=== PATIENT | male | born 1955 | race Caucasian/White ===

== ENCOUNTER 2018-02-27 13:34 | Inpatient (IN) | payer MEDICAID ==
[~2018-02-27] VITALS: Ht 175.3 cm; Wt 84.5 kg
[2018-02-27 13:42] VITALS: BP 148/96
--- NOTE | 2018-02-27 13:46 | NUR ---
AMBULATES OT BED 9
--- NOTE | 2018-02-27 14:01 | NUR ---
PATIENT PRESENTS TO ED WITH THE CHIEF C/O HEADACHE . PT STATES HEADACHE STARTED THIS MORNING . DENIES N/V/D; SKIN IS PINK/WARM/DRY; AAOX4 WITH EVEN AND STEADY GAIT; HR EVEN AND REGULAR; PT DENIES ANY FEVER, CP, SOB, OR COUGH AT THIS TIME; PATIENT STATES PAIN OF 8/10 AT THIS TIME; VSS; PATIENT POSITIONED FOR COMFORT; HOB ELEVATED; BEDRAILS UP X2; BED DOWN. ER MD MADE AWARE OF PT STATUS.
--- NOTE | 2018-02-27 14:05 | NUR ---
Dr. Roberto evaluating patient at bedside.
[2018-02-27] MEDS ORDERED: ONDANSETRON 4 MG/2 ML VIAL IVP ONE (14:10)
[2018-02-27] MEDS ORDERED: MECLIZINE 25 MG TAB PO ONE (14:10)
--- NOTE | 2018-02-27 14:18 | NUR ---
PT DENIES DIZZINESS AT THS TIME. TAKEN TO CT BY MILLWRIGHT APPRENTICE VIA WHEELCHAIR.
--- NOTE | 2018-02-27 14:34 | NUR ---
RETURNED FROM CT ON STABLE CONDITION.
[2018-02-27] MEDS: NACL 0.9% 1,000 ML IV SCH ×3 (14:46→17:28)
--- NOTE | 2018-02-27 14:51 | NUR ---
ADMINISTERED MEDICATION. TOLERATING WELL. FAMILY AT BEDSIDE.
[2018-02-27] MEDS ORDERED: PIPERACILLIN/TAZOBACTAM 3.375 GM in DEXT 5% MINI-BAG PLUS 50 ML IV ONE (15:00)
[2018-02-27] MEDS ORDERED: NACL 0.9% 1,000 ML IV SCH (15:00)
--- NOTE | 2018-02-27 15:02 | NUR ---
BP 167/87. DR. PARADA MADE AWARE.
[2018-02-27] MEDS ORDERED: PIPERACILLIN/TAZOBACTAM 3.375 GM VIAL IV ONE (15:10)
--- NOTE | 2018-02-27 15:15 | NUR ---
BLOOD DRAWN BY LAB.
[2018-02-27 15:32] LABS: BASOPHILS # (AUTO) 0.1 K/uL (0.00-0.22); BASOPHILS % (AUTO) 1.2 % (0.0-2.0); EOSINOPHILS # (AUTO) 0.2 K/uL (0-0.4); EOSINOPHILS % (AUTO) 2.9 % (0.0-4.0); HEMATOCRIT 37.1 % (36-52); HEMOGLOBIN 12.7 g/dL (12.0-18.0); LYMPHOCYTES # (AUTO) 1.3 K/uL (2.0-11.5); LYMPHOCYTES % (AUTO) 16.9 % (20.5-51.1); MEAN CORPUSCULAR HEMOGLOBIN 31 pg (27-31); MEAN CORPUSCULAR HGB CONC 34 g/dL (33-37); MEAN CORPUSCULAR VOLUME 90.9 fL (80-94); MONOCYTES # (AUTO) 0.3 K/uL (0.8-1.0); MONOCYTES % (AUTO) 3.3 % (1.7-9.3); NEUTROPHILS # (AUTO) 5.9 K/uL (1.8-7.7); NEUTROPHILS % (AUTO) 75.7 % (42.2-75.2); PLATELET COUNT (AUTO) 185 K/uL (140-450); RED BLOOD CELL COUNT(AUTO) 4.08 MIL/uL (4.20-6.10); RED CELL DISTRIBUTION WIDTH 13.3 % (11.6-13.7); WHITE BLOOD COUNT (AUTO) 7.8 K/uL (4.8-10.8)
[2018-02-27 15:49] LABS: PROTHROMBIN TIME 9.7 secs (10.8-13.4)
[2018-02-27] MEDS ORDERED: BLOOD PRESSURE (15:49)
[2018-02-27] MEDS ORDERED: METF500T PO (15:49)
[2018-02-27 15:53] LABS: ALBUMIN 2.9 g/dL (3.4-5.0); AMYLASE 52 U/L (25-115); ANION GAP 11.1 (8-16); ASPARTATE AMINOTRANSFERASE 24 U/L (15-37); CARBON DIOXIDE 27.8 mmol/L (21-32); CHLORIDE 100 mmol/L (98-107); CREATININE 1.9 mg/dL (0.7-1.3); GFR ARICAN-AMERICAN 47 mL/min (>90); GLUCOSE 300 mg/dL (74-106); LIPASE 241 U/L (73-393); MAGNESIUM 1.5 mg/dL (1.8-2.4); POTASSIUM 3.9 mmol/L (3.5-5.1); SODIUM SERUM 135 mmol/L (136-145); TOTAL BILIRUBIN 0.5 mg/dL (0.0-1.0); UREA NITROGEN, BLOOD 25 mg/dL (7-18)
[2018-02-27 16:02] LABS: ACETONE, SERUM NEGATIVE (NEGATIVE)
--- NOTE | 2018-02-27 16:20 | NUR ---
PT APPEARS TO BE RELAXED. RESTING IN BED QUIETLY. NO ACUTE RESP DISTRESS NOTED. NO CHANGE IN LOC. WILL CONTINUE TO MONITOR.
[2018-02-27] MEDS ORDERED: INSULIN REGULAR, HUMAN 100 UNIT/ML VIAL SUBQ ONE (17:10)
[2018-02-27] MEDS ORDERED: ONDANSETRON 4 MG/2 ML VIAL IM/IVP PRN (17:30)
[2018-02-27] MEDS ORDERED: HYDROcodone/APAP 7.5/325 MG 1 TAB PO PRN (17:30)
[2018-02-27] MEDS ORDERED: ACETAMINOPHEN 325 MG TAB PO PRN (17:30)
[2018-02-27] MEDS ORDERED: DOCUSATE SODIUM 100 MG GELCAP PO PRN (17:30)
[2018-02-27] MEDS ORDERED: MECLIZINE 25 MG TAB PO PRN (17:35)
--- NOTE | 2018-02-27 17:45 | NUR ---
UNABLE TO COLLECT URINE. PT DIDNOT VOID.
--- NOTE | 2018-02-27 18:05 | NUR ---
PT TRANSFERRED TO [facility] VIA [facility]. PT ON STBLE CONDITION. REPORT GIVEN TO INEZ. HANDED BELONGINGS TO THE PT.
[2018-02-27 18:12] LABS: CHOL/HDL RATIO 5.6 (1-4.5); FREE T4 (FREE THYROXINE) 1.05 ng/dL (0.76-1.46); PHOSPHORUS 3.5 mg/dL (2.5-4.9); THYROID STIMULATING HORMONE 0.82 uIU/mL (0.34-3.74)
--- NOTE | 2018-02-27 18:20 | NUR ---
PT ADMITTED TO TELE. PT AMBULATED TO BED FROM [facility] WITH STEADY GAIT. BEDSIDE REPORT GIVEN BY ER NURSE WARREN. PT'S FAMILY AT BEDSIDE. PT IS AAOX4. INTRODUCED SELF. PT ABLE TO STATE NAME AND BIRTHDAY. KNOWS HE IS AT [facility] AND WHAT BROUGHT HIM HERE. DENIES PAIN. LUNG SOUNDS CLEAR. O2 SAT 97% ON RA. HR 75, BP 143/63, TEMP 98.6, RR 18. IV TO R WRIST 20G INTACT. NS @100ML/HR. PT STATED LBM WAS TODAY. NO NAUSEA OR VOMITING. ORIENTED PT AND FAMILY TO USE OF CALL LIGHT AND ROOM PHONE. EDUCATED PT ON IV PUMP AND IF NEED TO AMBULATE TO BATHROOM TO PRESS CALL LIGHT. VERBALIZED UNDERSTANDING. TELE MONITOR. APPLIED, ID BAND ON, MRSA SWAB DONE. WILL CONTINUE TO MONITOR.
--- NOTE | 2018-02-27 18:30 | NUR ---
CALLED DR. TRACEY AND REPORTED PT'S MAG 1.5 AND ASKED IF PT CAN HAVE SOMETHING TO EAT. WILL WAIT FOR ORDERS.
[2018-02-27] MEDS ORDERED: DEXTROSE 50% 50 ML SYR IVP PRN ×2 (19:30)
--- NOTE | 2018-02-27 19:30 | NUR ---
ENDORSED PT TO SYNCHRONOUS MOTOR ASSEMBLER NURSE LORNE AT BEDSIDE FOR CONTINUITY OF CARE. PT IN STABLE CONDITION.
--- NOTE | 2018-02-27 19:35 | NUR ---
RECEIVED REPORT FROM DAY SHIFT RN, PATIENT RESTING IN BED, AWAKE ALERT ORIENTED X4, NO S/S OF DISTRESS NOTED, FAMILY MEMBERS AT THE BEDSIDE. IV PATENT AND INTACT, INFUSING NS AT 100ML/HR. PLAN OF CARE DISCUSSED, PATIENT VERBALIZED UNDERSTANDING, CALL LIGHT WITHIN REACH, SAFETY MEASURE ENSURED, WILL CONTINUE TO MONITOR.
[2018-02-27 20:00] VITALS: BP 143/59
[2018-02-27] MEDS: BLOOD GLUCOSE MONITORING 1 DEV DEV FS SCH (20:10)
--- NOTE | 2018-02-27 20:15 | NUR ---
PATIENT WAS EXAMINED BY DR. EASTMAN AT THE BEDSIDE
[2018-02-27] MEDS: INSULIN LISPRO SLIDING SCALE 100 UNITS/ML VIAL SUBQ PRN (20:55)
[2018-02-27 21:23] LABS: APPEARANCE,URINE CLEAR (CLEAR); BILIRUBIN,URINE NEGATIVE (NEGATIVE); BLOOD, URINE TRACE-L (NEGATIVE); LEUKOCYTE ESTERASE ,URINE NEGATIVE (NEGATIVE); NITRITE, URINE NEGATIVE (NEGATIVE); PH,URINE 5.5 (5.0-9.0); UGLUCOSE 3+ (NEGATIVE)
[2018-02-27 21:25] LABS: COLOR,URINE STRAW (YELLOW)
[2018-02-27] MEDS ORDERED: MAGNESIUM OXIDE 400 MG TAB PO SCH (21:30)
[2018-02-27 21:36] LABS: BARBITURATE, URINE NEG. ng/ml (NEG <=200); BENZODIAZEPINE, URINE NEG. ng/mL (NEG <=200); CANNABINOID, URINE NEG. ng/mL (NEG <=50); COCAINE, URINE NEG. ng/mL (NEG <=300); OPIATE, URINE NEG. ng/mL (NEG <=2000); PHENCYCLIDINE SCREEN,URINE NEG. ng/mL (NEG <=25)
--- NOTE | 2018-02-27 21:45 | NUR ---
RESPITE WORKER AT THE BEDSIDE, PATIENT RESTING IN BED, NO S/S OF DISTRESS NOTED.
[2018-02-27 21:49] LABS: RBC,URINE NONE SEEN /HPF (0-5); WBC,URINE NONE SEEN /HPF (0-5)
[2018-02-27] MEDS ORDERED: metFORMIN 500 MG TAB PO SCH (22:00)
[2018-02-27] MEDS ORDERED: cefTRIAXone 1,000 MG VIAL ONE (22:07)
--- NOTE | 2018-02-27 22:10 | NUR ---
DUE MEDICATION ADMINISTERED, PATIENT TOLERATED WELL. NO S/S OF DISTRESS NOTED, CALL LIGHT WITHIN REACH, SAFETY MEASURE ENSURED, WILL CONTINUE TO MONITOR.
[2018-02-28] VITALS: BP 128/69
--- NOTE | 2018-02-28 00:12 | NUR ---
VITAL SIGNS STABLE, RESPIRATION EVEN AND UNLABORED. CALL LIGHT WITHIN REACH, SAFETY MEASURE ENSURED, WILL CONTINUE TO MONITOR.
--- NOTE | 2018-02-28 02:46 | NUR ---
PATIENT IS SLEEPING, RESPIRATION EVEN AND UNLABORED, CALL LIGHT WITHIN REACH, SAFETY MEASURE ENSURED, WILL CONTINUE TO MONITOR.
[2018-02-28] MEDS: NACL 0.9% 1,000 ML IV SCH (03:44)
[2018-02-28 04:00] VITALS: BP 132/66
--- NOTE | 2018-02-28 04:15 | NUR ---
PATIENT WAS SLEEPING, EASY TO AROUSE, VITAL SIGNS STABLE, RESPIRATION EVEN AND UNLABORED, CALL LIGHT WITHIN REACH, SAFETY MEASURE ENSURED, WILL CONTINUE TO MONITOR.
[2018-02-28] MEDS: BLOOD GLUCOSE MONITORING 1 DEV DEV FS SCH (05:50)
[2018-02-28] MEDS: INSULIN LISPRO SLIDING SCALE 100 UNITS/ML VIAL SUBQ PRN (05:50)
[2018-02-28 06:22] LABS: BASOPHILS # (AUTO) 0.1 K/uL (0.00-0.22); BASOPHILS % (AUTO) 1.3 % (0.0-2.0); EOSINOPHILS # (AUTO) 0.4 K/uL (0-0.4); EOSINOPHILS % (AUTO) 5.8 % (0.0-4.0); HEMATOCRIT 33.6 % (36-52); HEMOGLOBIN 11.8 g/dL (12.0-18.0); LYMPHOCYTES # (AUTO) 1.8 K/uL (2.0-11.5); LYMPHOCYTES % (AUTO) 28.9 % (20.5-51.1); MEAN CORPUSCULAR HEMOGLOBIN 32 pg (27-31); MEAN CORPUSCULAR HGB CONC 35 g/dL (33-37); MEAN CORPUSCULAR VOLUME 91.5 fL (80-94); MONOCYTES # (AUTO) 0.4 K/uL (0.8-1.0); MONOCYTES % (AUTO) 5.6 % (1.7-9.3); NEUTROPHILS # (AUTO) 3.6 K/uL (1.8-7.7); NEUTROPHILS % (AUTO) 58.4 % (42.2-75.2); PLATELET COUNT (AUTO) 181 K/uL (140-450); RED BLOOD CELL COUNT(AUTO) 3.68 MIL/uL (4.20-6.10); RED CELL DISTRIBUTION WIDTH 13.2 % (11.6-13.7); WHITE BLOOD COUNT (AUTO) 6.2 K/uL (4.8-10.8)
[2018-02-28 07:03] LABS: ANION GAP 9.8 (8-16); CARBON DIOXIDE 28.1 mmol/L (21-32); CREATININE 1.6 mg/dL (0.7-1.3); POTASSIUM 3.9 mmol/L (3.5-5.1)
--- NOTE | 2018-02-28 07:17 | NUR ---
ENDORSED PLAN OF CARE TO DAY SHIFT RN, PATIENT RESTING IN BED, IN STABLE CONDITION.
--- NOTE | 2018-02-28 07:18 | NUR ---
RECEIVED REPORT FROM PM NURSE AT BEDSIDE. PT LYING DOWN ON HIS BED. INTRODUCED SELF AND UPDATED BOARD. IV ACCESS ON RT FA 22 G. DENIES ANY PAIN. WILL CONTINUE TO MONITOR PT.
[2018-02-28] MEDS ORDERED: CLINICAL MONITORING MC PRN (07:30)
[2018-02-28 07:40] LABS: MAGNESIUM 1.5 mg/dL (1.8-2.4); PHOSPHORUS 3.4 mg/dL (2.5-4.9)
[2018-02-28 08:00] VITALS: BP 152/70
[2018-02-28] MEDS ORDERED: metFORMIN 500 MG TAB PO SCH (08:00)
[2018-02-28] MEDS ORDERED: LISI-424 PO (08:39)
[2018-02-28] MEDS ORDERED: ASPI-1173 PO (08:39)
[2018-02-28] MEDS ORDERED: ATOR20TA40 PO (08:39)
[2018-02-28] MEDS ORDERED: GLIP5TAB13 PO (08:51)
[2018-02-28] MEDS ORDERED: LISI10TA11 PO (08:51)
--- NOTE | 2018-02-28 08:52 | NUR ---
PT REFUSED METFORMIN. STATES IT DOES HIS STOMACH UPSET. DOCTOR AT THE BEDSIDE. WILL STOP THE METFORMIN. WILL CONTINUE TO MONITOR PT.
[2018-02-28] MEDS ORDERED: ATORVASTATIN 20 MG TAB PO SCH (09:00)
[2018-02-28] MEDS ORDERED: ECOTRIN 81 MG TABEC PO SCH (09:00)
[2018-02-28] MEDS ORDERED: LISINOPRIL 5 MG TAB PO SCH (09:00)
[2018-02-28] MEDS ORDERED: METOPROLOL SUCCINATE 50 MG TABER PO SCH (09:00)
--- NOTE | 2018-02-28 10:30 | NUR ---
CHECKED ON PT. FAMILY AT THE BEDSIDE. INFORMED HIM OF HIS DC ORDERS. WORKING ON IT. ASKED PT IF WANTED TO GET PNA VACCINE. PT WANTS TO GET THE PNA VACCINE. ASKED DR TO PUT ORDER FOR PNA VACCINE. WAITING FOR DOCTOR ORDER . WILL CONTINUE TO MONITOR PT.
[2018-02-28] MEDS ORDERED: PNEUMOCOCCAL VACCINE 23 MCG/0.5 ML VIAL IMVAC SCH (10:35)
--- NOTE | 2018-02-28 12:00 | NUR ---
PT DISCHARGED PER DOCTOR ORDER. PT IN STABLE CONDITION. FAMILY AT THE BEDSIDE. GAVE THE INSTRUCTION PROVIDED IN THE DC ORDER. GAVE PRESCRIPTION AND THE DC PACKET. PT VERBALIZED UNDERSTANDING. PT WENT HOME WITH ALL HIS BELONGINGS AND PT IN STABLE CONDITION.
== END 2018-02-28 11:40 | disposition home or self-care (01) | DRG 139 ==
LOC: MED 13:34 → MTU 17:28
PROVIDERS: ADMIT General Practice; ATTEND General Practice
DX: J18.9 Pneumonia, unspecified organism (principal); N17.0 Acute kidney failure with tubular necrosis; D68.59 Other primary thrombophilia; E11.51 Type 2 diabetes mellitus with diabetic peripheral angiopathy without gangrene; E11.22 Type 2 diabetes mellitus with diabetic chronic kidney disease; J90 Pleural effusion, not elsewhere classified; E44.0 Moderate protein-calorie malnutrition; E11.65 Type 2 diabetes mellitus with hyperglycemia; N18.3 Chronic kidney disease, stage 3 (moderate); E83.42 Hypomagnesemia; E86.0 Dehydration; E78.5 Hyperlipidemia, unspecified; Z90.49 Acquired absence of other specified parts of digestive tract; Z89.422 Acquired absence of other left toe(s); J98.11 Atelectasis; Z68.27 Body mass index [BMI] 27.0-27.9, adult; I12.9 Hypertensive chronic kidney disease with stage 1 through stage 4 chronic kidney disease, or unspecified chronic kidney disease
CPT/HCPCS: 36415; 70450; 71045; 80048; 80053; 80305; 81001; 82009; 82150; 82550; 82553; 82948; 83036; 83605; 83690; 83735; 83874; 83880; 84100; 84436; 84439; 84443; 84479; 84484; 85025; 85610; 85730; 87040; 87081; 87086; 90732; 93005; 93880; 93925; 93970; 96374; 99285; J0696; J1815; J2405; J2543; J7030; J7060; J8597; Q0092

== ENCOUNTER 2019-03-31 09:48 | Emergency (ER) | payer MEDICAID ==
[~2019-03-31] VITALS: Ht 175.3 cm; Wt 84.6 kg
[~2019-03-31 09:48] MED LIST: ASPI-1173 PO; ATOR20TA40 PO; GLIP5TAB13 PO; LISI10TA11 PO
[2019-03-31 09:51] VITALS: BP 190/94
--- NOTE | 2019-03-31 10:02 | NUR ---
PT AMBULATED TO ER BED 12 WITH STEADY GAIT. ACCOMPANIED BY GIRLFRIEND
--- NOTE | 2019-03-31 10:14 | NUR ---
DR SHELTON AT BEDSIDE FOR PT EVALUATION
--- NOTE | 2019-03-31 10:18 | NUR ---
PT C/O LT EAR PAIN AND DIFFICULTY HEARING OUT OF LT EAR X1 MONTH. PT SAW MD AND WAS PRESCRIBED PENICILLIN, COMPLETED 7 DAY PRESCRIPTION. CLEAR, STICKY DRAINAGE AFTER MEDICATION COURSE COMPLETED. NO NASAL CONGESTION OR FEVER. PT TOOK TYLENOL AT 2100 LAST NIGHT W/ NO PAIN RELIEF. PT C/O DIFFICULTY CHEWING & SWALLOWING. PT RESTING IN BED WITH FAMILY MEMBER AT BEDSIDE, CALM. PT HAS NOT TAKEN MEDICATION X1.5 DAYS. MEDHX: DM, HTN, HYPERLIPIDEMIA
[2019-03-31] MEDS ORDERED: NACL 0.9% 1,000 ML IV SCH (10:23)
[2019-03-31] MEDS ORDERED: MORPHINE SULFATE 4 MG/ML SYR IVP ONE (10:25)
[2019-03-31] MEDS ORDERED: CEFEPIME 2,000 MG in DEXTROSE 5% 100 ML IV ONE (10:50)
[2019-03-31] MEDS ORDERED: CEFEPIME 2,000 MG VIAL IV ONE (11:06)
--- NOTE | 2019-03-31 11:10 | NUR ---
PT RESTING IN BED WITH EYES CLOSED. STATES PAIN IS 4/10 AFTER MEDS
[2019-03-31 11:22] LABS: BASOPHILS # (AUTO) 0.1 K/uL (0.00-0.22); EOSINOPHILS # (AUTO) 0.3 K/uL (0-0.4); EOSINOPHILS % (AUTO) 4.5 % (0.0-4.0); HEMATOCRIT 39.5 % (36-52); HEMOGLOBIN 13.8 g/dL (12.0-18.0); LYMPHOCYTES # (AUTO) 1.4 K/uL (2.0-11.5); LYMPHOCYTES % (AUTO) 21.2 % (20.5-51.1); MEAN CORPUSCULAR HEMOGLOBIN 32 pg (27-31); MEAN CORPUSCULAR HGB CONC 35 g/dL (33-37); MEAN CORPUSCULAR VOLUME 90.4 fL (80-94); MONOCYTES # (AUTO) 0.3 K/uL (0.8-1.0); MONOCYTES % (AUTO) 4.4 % (1.7-9.3); NEUTROPHILS # (AUTO) 4.4 K/uL (1.8-7.7); NEUTROPHILS % (AUTO) 68.9 % (42.2-75.2); PLATELET COUNT (AUTO) 206 K/uL (140-450); RED BLOOD CELL COUNT(AUTO) 4.37 MIL/uL (4.20-6.10); RED CELL DISTRIBUTION WIDTH 12.9 % (11.6-13.7); WHITE BLOOD COUNT (AUTO) 6.4 K/uL (4.8-10.8)
[2019-03-31 11:52] LABS: ANION GAP 14.1 (8-16); CARBON DIOXIDE 25.5 mmol/L (21-32); CREATININE 1.8 mg/dL (0.7-1.3); POTASSIUM 3.6 mmol/L (3.5-5.1)
--- NOTE | 2019-03-31 12:03 | NUR ---
PT RESTING WITH EYES CLOSED. WAITING TO GO TO CT
--- NOTE | 2019-03-31 12:26 | NUR ---
[facility] at bedside to take patient over to [facility] for CT order.
--- NOTE | 2019-03-31 14:45 | NUR ---
PATIENT IS BACK FROM CT FROM [place] AND [place]ACED IN BED 12.
[2019-03-31] MEDS ORDERED: cloNIDine 0.1 MG TAB PO ONE (15:30)
--- NOTE | 2019-03-31 15:38 | NUR ---
PT RESTING IN BED WITH DAUGHTER AT BEDSIDE. C/O 03/08 EAR PAIN.
[2019-03-31] MEDS ORDERED: MORPHINE SULFATE 10 MG/ML VIAL IVP ONE (16:15)
--- NOTE | 2019-03-31 17:16 | NUR ---
[facility] at bedside for transport to [facility] ED.
--- NOTE | 2019-03-31 17:20 | NUR ---
report given to Nacho at [facility] ed. [facility] at bedside. report given to Norberto EMT. vss at transfer.
[2019-03-31 17:24] VITALS: BP 156/98
== END 2019-03-31 17:20 | disposition short-term general hospital (02) ==
LOC: MED 09:48
DX: H60.22 Malignant otitis externa, left ear (principal); E11.9 Type 2 diabetes mellitus without complications; I10 Essential (primary) hypertension; E78.00 Pure hypercholesterolemia, unspecified; Z79.82 Long term (current) use of aspirin; Z79.899 Other long term (current) drug therapy
CPT/HCPCS: 36415; 80048; 82948; 85025; 85651; 86140; 87040; 96365; 96375; 96376; 99285; J0692; J2270; J7030

== ENCOUNTER 2019-04-01 16:56 | Inpatient (IN) | payer MEDICAID ==
[~2019-04-01] VITALS: Ht 175.3 cm; Wt 82.1 kg
[2019-04-01 17:01] VITALS: BP 171/114
--- NOTE | 2019-04-01 17:15 | NUR ---
PT AMBULATED TO BED 08.
--- NOTE | 2019-04-01 17:30 | NUR ---
PT C/O VOMITING 7 EPISODES AT 2 AM TODAY AFTER BEING DISCHARGED FROM [facility] ER FOR LEFT EAR INFECTION. PATIENT STATES PAIN OF 0/10 AT THIS TIME; VSS; PATIENT POSITIONED FOR COMFORT; HOB ELEVATED; BEDRAILS UP X1; BED DOWN. ER MD MADE AWARE OF PT STATUS. IS AT BEDSIDE.
[2019-04-01] MEDS ORDERED: ONDANSETRON 4 MG/2 ML VIAL IVP ONE (17:55)
[2019-04-01] MEDS ORDERED: NACL 0.9% 1,000 ML IV ONE (17:55)
[2019-04-01] MEDS ORDERED: KETOROLAC 30 MG/ML VIAL IVP ONE (17:55)
[2019-04-01 18:18] LABS: BASOPHILS % (AUTO) 0.2 % (0.0-2.0); EOSINOPHILS % (AUTO) 0.2 % (0.0-4.0); HEMATOCRIT 38.6 % (36-52); HEMOGLOBIN 13.1 g/dL (12.0-18.0); LYMPHOCYTES % (AUTO) 9.8 % (20.5-51.1); MEAN CORPUSCULAR HEMOGLOBIN 31 pg (27-31); MEAN CORPUSCULAR HGB CONC 34 g/dL (33-37); MEAN CORPUSCULAR VOLUME 91.7 fL (80-94); MONOCYTES # (AUTO) 0.3 K/uL (0.8-1.0); MONOCYTES % (AUTO) 3.2 % (1.7-9.3); NEUTROPHILS # (AUTO) 8.5 K/uL (1.8-7.7); NEUTROPHILS % (AUTO) 86.6 % (42.2-75.2); PLATELET COUNT (AUTO) 232 K/uL (140-450); RED BLOOD CELL COUNT(AUTO) 4.21 MIL/uL (4.20-6.10); RED CELL DISTRIBUTION WIDTH 13.4 % (11.6-13.7); WHITE BLOOD COUNT (AUTO) 9.8 K/uL (4.8-10.8)
--- NOTE | 2019-04-01 18:30 | NUR ---
PT IS RESTING IN BED WITH EYES CLOSED. VSS.
[2019-04-01 18:35] LABS: ANION GAP 19.1 (8-16); CARBON DIOXIDE 24.1 mmol/L (21-32); CREATININE 2.5 mg/dL (0.7-1.3); POTASSIUM 4.2 mmol/L (3.5-5.1)
[2019-04-01 18:41] LABS: ALBUMIN 3.5 g/dL (3.4-5.0); TOTAL BILIRUBIN 0.7 mg/dL (0.0-1.0)
[2019-04-01] MEDS ORDERED: HYDROcodone/APAP 7.5/325 MG 1 TAB PO PRN (19:05)
[2019-04-01] MEDS ORDERED: DOCUSATE SODIUM 100 MG GELCAP PO PRN (19:05)
[2019-04-01] MEDS ORDERED: MORPHINE SULFATE 2 MG/ML SYR IVP PRN (19:05)
[2019-04-01] MEDS ORDERED: DEXT 5% / NACL 0.45% 1,000 ML IV ONE (19:05)
[2019-04-01] MEDS ORDERED: PANTOPRAZOLE 40 MG INJ VIAL IVP SCH (19:05)
[2019-04-01] MEDS ORDERED: DEXTROSE 50% 50 ML SYR IVP PRN (19:05)
--- NOTE | 2019-04-01 19:19 | NUR ---
Pt report given to DANIAL Eisenberg. Transfer of care at this time.
--- NOTE | 2019-04-01 19:30 | NUR ---
PT. IS SLEEPING AT THIS TIME. IS AT BEDSIDE.
[2019-04-01 20:50] VITALS: BP 180/100
--- NOTE | 2019-04-01 20:50 | NUR ---
Patient will be admitted to care of [facility] . Admited to Med/Surg. Will go to room 106 B. Belongings list completed. Report to DANIAL VIZCAINO.
--- NOTE | 2019-04-01 20:50 | NUR ---
RECEIVED PT FROM ER NURSE. PT CAME IN [facility] AND AMBULATED TO [facility] BED. AT BEDSIDE. NO S/S OF SOB NOTED IN ROOM AIR. SKIN INTACT, WARM AND DRY TO TOUCH. IV SITE ON RAC, 20G, PATENT, INTACT, AND ASYMPTOMATIC. BOARD UPDATED, MRSA SWAB DONE, VS CHECKED, 180/100 NOTED, WILL NOTIFY TO DX: DEHYDRATION, LEFT EAR MALIGNANT OTITIS EXTERNA. ORIENT ROOM TO PT. BED IN LOW POSITION, CALL LIGHT WITHIN REACH. WILL CONTINUE TO MONITOR.
[2019-04-01] MEDS: DEXT 5% / NACL 0.45% 1,000 ML IV SCH ×2 (20:55→21:25)
[2019-04-01 21:10] LABS: APPEARANCE,URINE HAZY (CLEAR); BILIRUBIN,URINE NEGATIVE (NEGATIVE); BLOOD, URINE 2+ (NEGATIVE); COLOR,URINE YELLOW (YELLOW); LEUKOCYTE ESTERASE ,URINE NEGATIVE (NEGATIVE); NITRITE, URINE NEGATIVE (NEGATIVE); UGLUCOSE 2+ (NEGATIVE)
[2019-04-01 21:22] LABS: BARBITURATE, URINE NEG. ng/ml (NEG <=200); BENZODIAZEPINE, URINE NEG. ng/mL (NEG <=200); CANNABINOID, URINE NEG. ng/mL (NEG <=50); COCAINE, URINE NEG. ng/mL (NEG <=300); OPIATE, URINE POS. ng/mL (NEG <=2000); PHENCYCLIDINE SCREEN,URINE NEG. ng/mL (NEG <=25)
[2019-04-01 21:27] LABS: PROTHROMBIN TIME 9.3 secs (10.8-13.4)
[2019-04-01] MEDS ORDERED: METOPROLOL 5 MG/5 ML VIAL IVP SCH (21:30)
--- NOTE | 2019-04-01 21:30 | NUR ---
BS CHECKED, 260. WILL ADMINISTER INSULIN. GIVEN PROTONIX, LOLEA ORDERED. PT TOLERATED WELL.
[2019-04-01 21:34] LABS: CHOL/HDL RATIO 5.4 (1-4.5); PHOSPHORUS 3.1 mg/dL (2.5-4.9); THYROID STIMULATING HORMONE 1.07 uIU/mL (0.34-3.74)
[2019-04-01 21:35] LABS: MAGNESIUM 1.4 mg/dL (1.8-2.4)
[2019-04-01] MEDS: BLOOD GLUCOSE MONITORING 1 DEV DEV FS SCH (21:37)
[2019-04-01] MEDS ORDERED: MAG SULF 2000 MG/WATER PREMIX 50 ML IV SCH (22:00)
[2019-04-01] MEDS: INSULIN LISPRO SLIDING SCALE 100 UNITS/ML VIAL SUBQ PRN (22:10)
--- NOTE | 2019-04-01 22:10 | NUR ---
GIVEN INSULIN SLIDING SCALE, GIVEN MAG MILLS MD ORDERED. PT TOLERATED WELL. WILL CONTINUE TO MONITOR.
--- NOTE | 2019-04-01 22:38 | NUR ---
REASSESS BP, 129/67, HR 75. WILL CONTINUE TO MONITOR.
[2019-04-02] VITALS (7 sets, daily range): BP systolic 118–181; BP diastolic 55–90
--- NOTE | 2019-04-02 02:22 | NUR ---
PT SLEEPING IN BED. NO ACUTE DISTRESS NOTED.
[2019-04-02] MEDS: metroNIDAZOLE 500 MG/NS PREMIX 100 ML IV SCH ×3 (04:11→20:43)
[2019-04-02] MEDS: hydrALAZINE 10 MG TAB PO PRN ×3 (04:11→14:01)
--- NOTE | 2019-04-02 04:11 | NUR ---
GIVEN FLAGYL MD ORDERED, VS CHECKED, PAIN 8/10 ON L EAR. GIVEN MORPHINE MD ORDERED, BP 175/89, GIVEN HYDRALAZINE MD ORDERED. PT TOLERATED WELL. WILL CONTINUE TO MONITOR.
[2019-04-02] MEDS: DEXT 5% / NACL 0.45% 1,000 ML IV SCH ×2 (05:31→14:01)
[2019-04-02] MEDS: BLOOD GLUCOSE MONITORING 1 DEV DEV FS SCH ×4 (05:31→20:39)
[2019-04-02] MEDS: INSULIN LISPRO SLIDING SCALE 100 UNITS/ML VIAL SUBQ PRN ×4 (05:40→20:40)
--- NOTE | 2019-04-02 06:30 | NUR ---
PT IN BED, AWAKE. BREATHING EVEN AND UNLABORED.
[2019-04-02 06:51] LABS: BASOPHILS # (AUTO) 0.1 K/uL (0.00-0.22); BASOPHILS % (AUTO) 0.7 % (0.0-2.0); EOSINOPHILS # (AUTO) 0.2 K/uL (0-0.4); EOSINOPHILS % (AUTO) 2.5 % (0.0-4.0); HEMATOCRIT 32.7 % (36-52); HEMOGLOBIN 11.2 g/dL (12.0-18.0); LYMPHOCYTES # (AUTO) 1.4 K/uL (2.0-11.5); LYMPHOCYTES % (AUTO) 18.6 % (20.5-51.1); MEAN CORPUSCULAR HEMOGLOBIN 32 pg (27-31); MEAN CORPUSCULAR HGB CONC 34 g/dL (33-37); MEAN CORPUSCULAR VOLUME 91.8 fL (80-94); MONOCYTES # (AUTO) 0.5 K/uL (0.8-1.0); MONOCYTES % (AUTO) 6.6 % (1.7-9.3); NEUTROPHILS # (AUTO) 5.4 K/uL (1.8-7.7); NEUTROPHILS % (AUTO) 71.6 % (42.2-75.2); PLATELET COUNT (AUTO) 192 K/uL (140-450); RED BLOOD CELL COUNT(AUTO) 3.56 MIL/uL (4.20-6.10); RED CELL DISTRIBUTION WIDTH 13.2 % (11.6-13.7); WHITE BLOOD COUNT (AUTO) 7.5 K/uL (4.8-10.8)
[2019-04-02] MEDS ORDERED: DEXTROSE 50% 50 ML SYR IVP PRN (07:20)
[2019-04-02] MEDS ORDERED: INSULIN LISPRO SLIDING SCALE 100 UNITS/ML VIAL SUBQ PRN (07:20)
--- NOTE | 2019-04-02 07:20 | NUR ---
RECEIVED PT FROM MESS ATTENDANT CREW NURSE, CHARIS, PT IS AWAKE AND LYING ON THE BED WITH SIDE RAILS UP AND CALL LIGHT WITHIN REACH, IV LINE ON THE RT AC G. 20 WITH D51/2 NS INFUSING AT 100ML/HR, HAS A LEFT TOES AMPUTATION. PT DENEIS PAIN AND NO SIGN OF DISTRESS NOTED. WILL MONITOR PT.
[2019-04-02] MEDS ORDERED: BLOOD GLUCOSE MONITORING 1 DEV DEV FS SCH (07:30)
[2019-04-02 08:10] LABS: MAGNESIUM 1.9 mg/dL (1.8-2.4); PHOSPHORUS 3.2 mg/dL (2.5-4.9)
[2019-04-02] MEDS: ATORVASTATIN 20 MG TAB PO SCH (08:10)
[2019-04-02] MEDS: ONDANSETRON 4 MG/2 ML VIAL IM/IVP PRN (08:11)
[2019-04-02] MEDS: ECOTRIN 81 MG TABEC PO SCH (08:15)
[2019-04-02] MEDS: PANTOPRAZOLE 40 MG INJ VIAL IVP SCH (08:15)
[2019-04-02] MEDS: LACTOBACILLUS RHAMNOSUS GG 1 EACH CAP PO SCH (08:15)
--- NOTE | 2019-04-02 08:15 | NUR ---
GAVE IV PUSH MEDICATIONS, AND ORAL MEDICATIONS, CHECK PARAMETERS, PATIENT TOLERATED, WILL MONITOR AND REASSESS BP
[2019-04-02 08:18] LABS: ANION GAP 12.8 (8-16); CARBON DIOXIDE 26.7 mmol/L (21-32); CREATININE 2.5 mg/dL (0.7-1.3); POTASSIUM 3.5 mmol/L (3.5-5.1)
--- NOTE | 2019-04-02 08:19 | NUR ---
PATIENT HAS BEEN SCREENED AND CATEGORIZED MODERATE NUTRITION RISK. PATIENT WILL BE SEEN WITHIN 3-5 DAYS OF ADMISSION. 04/05/19MELINA KAUR [address]
--- NOTE | 2019-04-02 09:00 | NUR ---
pt performed IS very well. predicted 1899, actual 2399. RN aware.
[2019-04-02] MEDS: ACETAMINOPHEN 325 MG TAB PO PRN (10:46)
--- NOTE | 2019-04-02 10:46 | NUR ---
PT C/O PAIN ON THE LEFT TEMPORAL AREA AND ASKED FOR TYLENOL, ORAL MEDICATION WAS GIVEN AND WILL MONITOR PT.
--- NOTE | 2019-04-02 11:36 | NUR ---
BLOOD GLUCOSE CHECK DONE AND RESULT IS 188, WILL MONITOR PT.
--- NOTE | 2019-04-02 14:01 | NUR ---
PT,S BP WAS CHECKED, 175/77, PULSE IS 81, O2 SATURATION IS 96%, BP MEDICATION WAS GIVEN AND WILL RE-ASSESS AND MONITOR PT.
--- NOTE | 2019-04-02 16:20 | NUR ---
PT IS AWAKE AND BLOOD GLUCOSE CHECK DONE AND RESULT IS 232, INSULIN 4 UNITS WAS GIVEN ON THE RT UA, PT TOLERATED IT. WILL MONITOR PT.
[2019-04-02] MEDS ORDERED: hydrALAZINE 10 MG TAB PO PRN (16:40)
[2019-04-02] MEDS ORDERED: IBUPROFEN 600 MG TAB PO PRN (16:45)
[2019-04-02] MEDS ORDERED: amLODIPine 5 MG TAB PO SCH (17:00)
[2019-04-02] MEDS: NACL 0.9% 1,000 ML IV SCH (17:02)
--- NOTE | 2019-04-02 17:47 | NUR ---
DISCLOSURE OF MEDICAL RECORDS FROM [facility] FAXED, CONFIRMATION ATTACHED TO CHART.
[2019-04-02] MEDS ORDERED: OFLOXACIN 0.3% OT 5 ML SOL OT SCH (18:30)
--- NOTE | 2019-04-02 19:30 | NUR ---
ENDORSED PT TO UTILITY BILL COMPLAINTS INVESTIGATOR NURSEOSEAS FOR CONTINUITY OF CARE
--- NOTE | 2019-04-02 19:31 | NUR ---
RECEIVED PT FROM NESHA RN PT BELARUSIAN SPEAKER [id number] AMBULATORY IV ON RT ARM INFUSING WELL DENIES ANY PAIN OR DISCOMFORT INITIAL ASSESSMENT DONE
--- NOTE | 2019-04-02 21:30 | NUR ---
BLOOD SUGAR TEST 186 COVERAGE WITH 2 UNITS HUMALOG SUBQ FOLLOW PROTOCOL
[2019-04-03] VITALS: BP 150/70
--- NOTE | 2019-04-03 00:58 | NUR ---
PT SLEEPING WELL NOT SIGNS OF ANY PAIN OR DISCOMFORT
[2019-04-03] MEDS: ACETAMINOPHEN 325 MG TAB PO PRN ×2 (02:23→13:29)
[2019-04-03] MEDS: ONDANSETRON 4 MG/2 ML VIAL IM/IVP PRN ×2 (02:26→08:04)
--- NOTE | 2019-04-03 03:25 | NUR ---
AFTER PAIN MEDIC GIVEN PT IS SLEEPING WELL
[2019-04-03] MEDS: NACL 0.9% 1,000 ML IV SCH ×2 (04:10→12:40)
[2019-04-03] MEDS: metroNIDAZOLE 500 MG/NS PREMIX 100 ML IV SCH ×2 (04:26→13:30)
--- NOTE | 2019-04-03 04:27 | NUR ---
SPONGE BATH GIVEN LINEN CHANGED PT REMAIN STABLE DENIES ANY PAIN
[2019-04-03 06:07] LABS: T4 (THYROXINE) 10.3 ug/dL (4.5-12.0)
[2019-04-03] MEDS: BLOOD GLUCOSE MONITORING 1 DEV DEV FS SCH ×3 (06:55→16:33)
[2019-04-03 06:56] LABS: BASOPHILS % (AUTO) 0.4 % (0.0-2.0); EOSINOPHILS # (AUTO) 0.3 K/uL (0-0.4); EOSINOPHILS % (AUTO) 3.4 % (0.0-4.0); HEMOGLOBIN 11.4 g/dL (12.0-18.0); LYMPHOCYTES # (AUTO) 1.5 K/uL (2.0-11.5); LYMPHOCYTES % (AUTO) 19.7 % (20.5-51.1); MEAN CORPUSCULAR HEMOGLOBIN 32 pg (27-31); MEAN CORPUSCULAR HGB CONC 35 g/dL (33-37); MONOCYTES # (AUTO) 0.4 K/uL (0.8-1.0); MONOCYTES % (AUTO) 5.3 % (1.7-9.3); NEUTROPHILS # (AUTO) 5.5 K/uL (1.8-7.7); NEUTROPHILS % (AUTO) 71.2 % (42.2-75.2); PLATELET COUNT (AUTO) 199 K/uL (140-450); RED BLOOD CELL COUNT(AUTO) 3.58 MIL/uL (4.20-6.10); RED CELL DISTRIBUTION WIDTH 13.4 % (11.6-13.7); WHITE BLOOD COUNT (AUTO) 7.7 K/uL (4.8-10.8)
--- NOTE | 2019-04-03 06:58 | NUR ---
BLOOD SUGAR TEST 150 NOT COVERAGE . PT WILL BE ENDORSED TO DAY SHIFT NURSE FOR CONTINUE OF CARE
--- NOTE | 2019-04-03 07:05 | NUR ---
RECEIVED PT FROM FELLING BUCKING SUPERVISOR NURSEOSEAS, PT IS ASLEEP, SIDE RAILS ARE UP AND CALL LIGHT WITHIN REACH, IV LINE ON THE RT AC G. 20 WITH NS AT 100ML/HR,, PT DENIES PAIN AND NO SIGN OF DISTRESS NOTED. WILL CONTINUE TO MONITOR PT.
[2019-04-03 07:24] LABS: ANION GAP 12.3 (8-16); CARBON DIOXIDE 24.3 mmol/L (21-32); CREATININE 1.9 mg/dL (0.7-1.3); POTASSIUM 3.6 mmol/L (3.5-5.1)
[2019-04-03 07:25] LABS: MAGNESIUM 1.5 mg/dL (1.8-2.4); PHOSPHORUS 3.3 mg/dL (2.5-4.9)
[2019-04-03 08:00] VITALS: BP 168/100
[2019-04-03] MEDS: LACTOBACILLUS RHAMNOSUS GG 1 EACH CAP PO SCH (08:06)
[2019-04-03] MEDS: PANTOPRAZOLE 40 MG INJ VIAL IVP SCH (08:06)
[2019-04-03] MEDS: ECOTRIN 81 MG TABEC PO SCH (08:06)
[2019-04-03] MEDS: ATORVASTATIN 20 MG TAB PO SCH (08:07)
--- NOTE | 2019-04-03 08:08 | NUR ---
PT IS AWAKE AND IS VOMITING, ZOFRAN WAS GIVEN IV PUSH, V/S CHECKED AND ORAL MEDICATIONS WERE GIVEN AND PT TOLERATED IT. WILL MONITOR PT.
[2019-04-03] MEDS ORDERED: amLODIPine 5 MG TAB PO SCH (09:00)
[2019-04-03] MEDS ORDERED: PROMETHAZINE 25 MG TAB PO PRN (09:05)
[2019-04-03] MEDS ORDERED: AMLO5TAB6 PO (09:23)
[2019-04-03] MEDS ORDERED: IBUP-2213 PO (09:23)
[2019-04-03] MEDS ORDERED: PROM25TA27 PO (09:23)
[2019-04-03] MEDS ORDERED: COROTSOL OT (09:23)
[2019-04-03] MEDS: NEOMYCIN/POLYMYXIN/HC OT SOL. 10 ML BTL OT SCH ×3 (11:33→16:41)
[2019-04-03] MEDS: INSULIN LISPRO SLIDING SCALE 100 UNITS/ML VIAL SUBQ PRN ×2 (11:33→16:35)
--- NOTE | 2019-04-03 11:33 | NUR ---
PT IS AWAKE AND BLOOD GLUCOSE CHECK DONE AND RESULT IS 231, 4 UNITS INSULIN GIVEN ON THE LEFT UA, SUBQ, EAR DROPS GIVEN WELL TWO DROPS ON THE LEFT EAR, PT WAS INSTRUCTED TO STAY ON THE RT SIDE FOR 5 MINUTES. WILL MONITOR PT.
--- NOTE | 2019-04-03 13:00 | NUR ---
EAR DROPS NOT GIVEN BECAUSE LAST DOSE GIVEN WAS TOO CLOSE FOR THE SCHEDULED ONE.
--- NOTE | 2019-04-03 14:10 | NUR ---
ADMINISTERED ORAL MEDICATION TO PATIENT FOR NAUSEA, TOLERATED WELL, WILL CONTINUE TO MONITOR.
[2019-04-03] MEDS ORDERED: ONDA-24 SL (15:20)
[2019-04-03 16:00] VITALS: BP 138/69
--- NOTE | 2019-04-03 18:35 | NUR ---
DISCHARGED PATIENT TO HOME, ACCOMPANIED BY GIRLFRIEND, DISCHARGE TEACHINGS AND PRESCRIPTIONS INSTRUCTIONS GIVEN, PATIENT VERBALIZED UNDERSTANDING, IV AND ARMBANDS REMOVED, PATIENT IS STABLE AT THIS TIME.
== END 2019-04-03 18:35 | disposition home or self-care (01) | DRG 249 ==
LOC: MED 16:56 → MTU 19:05
PROVIDERS: ADMIT General Practice; ATTEND General Practice
DX: K52.9 Noninfective gastroenteritis and colitis, unspecified (principal); N17.0 Acute kidney failure with tubular necrosis; E11.65 Type 2 diabetes mellitus with hyperglycemia; E83.42 Hypomagnesemia; I10 Essential (primary) hypertension; E78.1 Pure hyperglyceridemia; J98.11 Atelectasis; E11.21 Type 2 diabetes mellitus with diabetic nephropathy; E86.0 Dehydration; H60.22 Malignant otitis externa, left ear; E78.5 Hyperlipidemia, unspecified; Z90.49 Acquired absence of other specified parts of digestive tract; Z83.3 Family history of diabetes mellitus; Z84.1 Family history of disorders of kidney and ureter; Z82.49 Family history of ischemic heart disease and other diseases of the circulatory system
CPT/HCPCS: 36415; 36600; 71045; 76700; 80048; 80053; 80305; 81003; 82140; 82150; 82803; 82948; 83036; 83605; 83690; 83735; 83880; 84100; 84436; 84443; 84484; 85025; 85610; 85730; 87040; 87081; 87086; 93005; 96361; 96374; 96375; 99285; C9113; J1885; J2270; J2405; J3475; J3490; J7030; Q0092; Q0169

== ENCOUNTER 2019-04-17 18:13 | Emergency (ER) | payer MEDICAID ==
[~2019-04-17] VITALS: Ht 175.3 cm; Wt 81.6 kg
[~2019-04-17 18:13] MED LIST changes: +AMLO5TAB6 PO; +COROTSOL OT; -GLIP5TAB13 PO; +IBUP-2213 PO; +ONDA-24 SL; +PROM25TA27 PO
[2019-04-17 18:37] VITALS: BP 176/101
--- NOTE | 2019-04-17 18:45 | NUR ---
WAIT AT LOBBY
--- NOTE | 2019-04-17 20:14 | NUR ---
CALL IN LOBBY-NO ANSWER
--- NOTE | 2019-04-17 21:16 | NUR ---
CALLED PT NO ANSWER, LWBS
--- NOTE | 2019-04-17 21:20 | NUR ---
PATIENT LEFT WITHOUT BEING SEEN BY DR. NIELSEN. NO FURTHER CARE PROVIDED FOR PATIENT.
== END 2019-04-17 20:14 | disposition left against medical advice (07) ==
LOC: MED 18:13
DX: H92.02 Otalgia, left ear (principal); Z53.21 Procedure and treatment not carried out due to patient leaving prior to being seen by health care provider

== ENCOUNTER 2020-03-01 09:06 | Emergency (ER) | payer MEDICAID, OTHER ==
[~2020-03-01] VITALS: Ht 175.3 cm; Wt 77.1 kg
[2020-03-01 09:13] VITALS: BP 163/106
[2020-03-01] MEDS ORDERED: FAMOTIDINE 20 MG TAB PO ONE (09:35)
[2020-03-01] MEDS ORDERED: ALUMINUM HYD/MAG/SIMETHICONE 30 ML UDC PO ONE (09:35)
[2020-03-01 09:54] LABS: BASOPHILS # (AUTO) 0.1 K/uL (0.00-0.22); EOSINOPHILS # (AUTO) 0.3 K/uL (0-0.4); EOSINOPHILS % (AUTO) 3.7 % (0.0-4.0); HEMATOCRIT 34.8 % (36-52); HEMOGLOBIN 11.5 g/dL (12.0-18.0); LYMPHOCYTES # (AUTO) 1.4 K/uL (2.0-11.5); MEAN CORPUSCULAR HEMOGLOBIN 29 pg (27-31); MEAN CORPUSCULAR HGB CONC 33 g/dL (33-37); MEAN CORPUSCULAR VOLUME 88.6 fL (80-94); MONOCYTES # (AUTO) 0.4 K/uL (0.8-1.0); MONOCYTES % (AUTO) 4.7 % (1.7-9.3); NEUTROPHILS # (AUTO) 5.9 K/uL (1.8-7.7); NEUTROPHILS % (AUTO) 73.6 % (42.2-75.2); PLATELET COUNT (AUTO) 216 K/uL (140-450); RED BLOOD CELL COUNT(AUTO) 3.93 MIL/uL (4.20-6.10); RED CELL DISTRIBUTION WIDTH 14.7 % (11.6-13.7)
[2020-03-01 10:13] LABS: ALBUMIN 3.2 g/dL (3.4-5.0); ANION GAP 13.8 (8-16); CARBON DIOXIDE 23.3 mmol/L (21-32); CREATININE 1.8 mg/dL (0.6-1.3); POTASSIUM 4.1 mmol/L (3.5-5.1); TOTAL BILIRUBIN 0.4 mg/dL (0.0-1.0)
[2020-03-01 11:06] VITALS: BP 162/92
== END 2020-03-01 11:07 | disposition home or self-care (01) ==
LOC: MED 09:06
DX: K29.70 Gastritis, unspecified, without bleeding (principal); I10 Essential (primary) hypertension; E11.9 Type 2 diabetes mellitus without complications; E78.5 Hyperlipidemia, unspecified; Z90.49 Acquired absence of other specified parts of digestive tract; Z89.429 Acquired absence of other toe(s), unspecified side; Z79.82 Long term (current) use of aspirin; Z79.899 Other long term (current) drug therapy
CPT/HCPCS: 36415; 80053; 81002; 82948; 83690; 85025; 93005; 99283

== ENCOUNTER 2021-02-03 18:30 | Emergency (ER) | payer OTHER ==
[~2021-02-03] VITALS: Ht 175.3 cm; Wt 77.6 kg
[~2021-02-03 18:30] MED LIST changes: +AMLO-3 PO; -AMLO5TAB6 PO; -ASPI-1173 PO; +ASPI-1856 PO; -LISI10TA11 PO; +LISI10TA30 PO
[2021-02-03 19:01] VITALS: BP 183/101
--- NOTE | 2021-02-03 19:25 | NUR ---
PT. IS A 65 Y/O MALE THAT CAME INTO ED WITH C/O OF ABDOMINAL PAIN AND RIGHT LEG PAIN. PT. STATES THAT THE ABDOMINAL PAIN STARTED 4 DAYS AGO AND WHEN ASKED TO DESCRIBE PAIN, HE STATES "IT JUST HURTS, I CAN'T DESCRIBE THE PAIN, IT'S JUST PAIN." PT. ALSO STATES THAT WHEN HE EATS A SMALL MEAL, HE ALREADY FEELS BLOATED. PT. RATES PAIN AT 7/10 ON THE PAIN SCALE AT THIS TIME AND DESCRIBED PAIN RADIATING TO HIS LOWER TRUNK. PT. ALSO STATES THAT HE CANNOT STAND ON IT FOR MORE THAN 10 MINS. WITHOUT IT HURTING AND HAVING TO SIT DOWN. PT. RATES RIGHT LEG PAIN 10/10 ONT HE PAIN SCALE AT THIS TIME. DENIES N/V/D; SKIN IS PINK/WARM/DRY; AAOX4 WITH EVEN AND STEADY GAIT; HR EVEN AND REGULAR; PT DENIES ANY FEVER, CP, SOB, OR COUGH AT THIS TIME; VSS; PATIENT POSITIONED FOR COMFORT; HOB ELEVATED; BEDRAILS UP X2; BED DOWN. ER MD MADE AWARE OF PT STATUS. PMH: HTN, DM 2, "KIDNEY PROBLEMS" ALLERGIES: NKA
--- NOTE | 2021-02-03 20:05 | NUR ---
RAHEEM HECK AT BEDSIDE
[2021-02-03] MEDS ORDERED: LIDOCAINE VISCOUS 2% 20 ML UDC PO ONE (20:15)
[2021-02-03] MEDS ORDERED: ALUMINUM HYD/MAG/SIMETHICONE 30 ML UDC PO ONE (20:15)
[2021-02-03] MEDS ORDERED: PANTOPRAZOLE 40 MG TABEC PO ONE (20:15)
[2021-02-03 20:32] LABS: BASOPHILS # (AUTO) 0.1 K/uL (0.00-0.22); BASOPHILS % (AUTO) 1.2 % (0.0-2.0); EOSINOPHILS # (AUTO) 0.4 K/uL (0-0.4); EOSINOPHILS % (AUTO) 4.9 % (0.0-4.0); HEMOGLOBIN 11.6 g/dL (12.0-18.0); LYMPHOCYTES # (AUTO) 1.4 K/uL (2.0-11.5); LYMPHOCYTES % (AUTO) 17.6 % (20.5-51.1); MEAN CORPUSCULAR HEMOGLOBIN 32 pg (27-31); MEAN CORPUSCULAR HGB CONC 34 g/dL (33-37); MEAN CORPUSCULAR VOLUME 92.3 fL (80-94); MONOCYTES # (AUTO) 0.5 K/uL (0.8-1.0); MONOCYTES % (AUTO) 5.8 % (1.7-9.3); NEUTROPHILS # (AUTO) 5.6 K/uL (1.8-7.7); NEUTROPHILS % (AUTO) 70.5 % (42.2-75.2); PLATELET COUNT (AUTO) 165 K/uL (140-450); RED BLOOD CELL COUNT(AUTO) 3.68 MIL/uL (4.20-6.10); RED CELL DISTRIBUTION WIDTH 14.4 % (11.6-13.7)
[2021-02-03 20:43] LABS: ANION GAP 12.9 (8-16); CARBON DIOXIDE 26.2 mmol/L (21-32); CREATININE 2.7 mg/dL (0.6-1.3); POTASSIUM 4.1 mmol/L (3.5-5.1); TOTAL BILIRUBIN 0.5 mg/dL (0.0-1.0)
[2021-02-03 21:17] VITALS: BP 183/101
--- NOTE | 2021-02-03 21:17 | NUR ---
PATIENT SIGNED AMA FORM AFTER BEING EDUCATED ON IMPORTANCE OF STAYING AT HOSPITAL BY RAHEEM HECK. PT. STATES "I WILL JUST COME BACK TOMORROW."
[2021-02-03] MEDS ORDERED: FAMO-90 PO (21:22)
== END 2021-02-03 21:17 | disposition left against medical advice (07) ==
LOC: MED 18:30
DX: K21.9 Gastro-esophageal reflux disease without esophagitis (principal); N17.9 Acute kidney failure, unspecified; E11.9 Type 2 diabetes mellitus without complications; I10 Essential (primary) hypertension; E78.5 Hyperlipidemia, unspecified; Z90.49 Acquired absence of other specified parts of digestive tract; Z89.429 Acquired absence of other toe(s), unspecified side
CPT/HCPCS: 36415; 80053; 83690; 85025; 99284

== ENCOUNTER 2021-02-20 22:37 | Emergency (ER) | payer OTHER ==
[~2021-02-20] VITALS: Ht 175.3 cm; Wt 78.5 kg
[~2021-02-20 22:37] MED LIST changes: +FAMO-90 PO
[2021-02-20 22:43] VITALS: BP 174/110
--- NOTE | 2021-02-20 22:49 | NUR ---
triaged and waiting in ER lobby.
[2021-02-20] MEDS ORDERED: CIPR7.5S OT (23:40)
[2021-02-20] MEDS ORDERED: IBUPROFEN 800 MG TAB PO ONE (23:40)
[2021-02-20] MEDS ORDERED: ONDA-24 SL (23:40)
[2021-02-20] MEDS ORDERED: ONDANSETRON 4 MG ODT PO ONE (23:40)
[2021-02-20] MEDS ORDERED: IBUP-2218 PO (23:40)
--- NOTE | 2021-02-20 23:52 | NUR ---
d/c with VSS. d/c education given. opportunity to ask questions given and answered. rx of cipro, ibuprofen, and zofran given.
== END 2021-02-20 23:52 | disposition home or self-care (01) ==
LOC: MED 22:37
DX: H60.92 Unspecified otitis externa, left ear (principal); R11.2 Nausea with vomiting, unspecified; E11.9 Type 2 diabetes mellitus without complications; I10 Essential (primary) hypertension; Z90.49 Acquired absence of other specified parts of digestive tract; Z89.429 Acquired absence of other toe(s), unspecified side; Z79.899 Other long term (current) drug therapy; Z79.82 Long term (current) use of aspirin
CPT/HCPCS: 99283; Q0162

== ENCOUNTER 2021-02-23 01:50 | Observation (INO) | payer OTHER, SELFPAY ==
[~2021-02-23] VITALS: Ht 175.3 cm; Wt 78.0 kg
[~2021-02-23 01:50] MED LIST changes: +CIPR7.5S OT; +IBUP-2218 PO
[2021-02-23 01:55] VITALS: BP 180/110
--- NOTE | 2021-02-23 01:58 | NUR ---
TO LOBBY A/W BED AMBULATORY
--- NOTE | 2021-02-23 05:24 | NUR ---
patient reports vomiting and nausea the last 6 days. patient had zofran on hand but with no relief. patient reports not being able to keep any medicine down as well. patient denies fever and cough but patient does have a change in appetite. Amputation of the L foot the 2nd and 4th toe distal to the pinky toe. AAOx4. PMH: DM, HTN, HDL NKA
--- NOTE | 2021-02-23 06:00 | NUR ---
RAHEEM Morrissey at bedside for examination of patient
[2021-02-23] MEDS ORDERED: NACL 0.9% 1,000 ML IV ONE (06:05)
[2021-02-23] MEDS ORDERED: METOCLOPRAMIDE 10 MG/2 ML INJ VIAL IVP ONE ×2 (06:05→15:05)
[2021-02-23 06:16] LABS: HEMATOCRIT 40.3 % (36-52); HEMOGLOBIN 13.7 g/dL (12.0-18.0); MEAN CORPUSCULAR HEMOGLOBIN 31 pg (27-31); MEAN CORPUSCULAR HGB CONC 34 g/dL (33-37); MEAN CORPUSCULAR VOLUME 92.5 fL (80-94); PLATELET COUNT (AUTO) 249 K/uL (140-450); RED BLOOD CELL COUNT(AUTO) 4.36 MIL/uL (4.20-6.10); RED CELL DISTRIBUTION WIDTH 13.8 % (11.6-13.7); WHITE BLOOD COUNT (AUTO) 10.3 K/uL (4.8-10.8)
[2021-02-23 06:21] LABS: ALBUMIN 3.7 g/dL (3.4-5.0); ANION GAP 14.9 (8-16); CARBON DIOXIDE 25.1 mmol/L (21-32); CREATININE 2.5 mg/dL (0.6-1.3); TOTAL BILIRUBIN 0.5 mg/dL (0.0-1.0)
--- NOTE | 2021-02-23 06:38 | NUR ---
estrella collected and sent to lab, received by mary anne rivera
[2021-02-23 06:43] LABS: LYMPHOCYTES % (MANUAL) 8 % (20-46); MONOCYTES % (MANUAL) 4 % (5-12)
--- NOTE | 2021-02-23 07:05 | NUR ---
Patient taken to CT via padmaja
--- NOTE | 2021-02-23 07:13 | NUR ---
Pt report given to DANIAL Spear. Transfer of care at this time.
--- NOTE | 2021-02-23 07:15 | NUR ---
PT BACK FROM CT.
--- NOTE | 2021-02-23 07:17 | NUR ---
REPORT RECEIVED FROM SU RN, TRANSFER OF CARE AT THIS TIME. PT RESTING IN BED WITH EVEN AND UNLABORED RESPIRATIONS. PT A/O X4 GCS 15. TURNED DOWN LIGHTS FOR COMFORT
--- NOTE | 2021-02-23 07:50 | NUR ---
PT C/O 9 PAIN AND REQUESTING PAIN MEDS. DR RODRIGUEZ MADE AWARE
[2021-02-23] MEDS ORDERED: HYDROcodone/APAP 5/325 MG 1 TAB TAB PO ONE (07:55)
--- NOTE | 2021-02-23 09:45 | NUR ---
PT RESTING IN BED WITH EVEN AND UNLABORED RESPIRATIONS. PT ON TUNNEL MINER. WILL CONTINUE TO MONITOR
--- NOTE | 2021-02-23 11:50 | NUR ---
Oswald goel in ED - 02/23/21 at 1329 by [email or web address] PT RESTING IN BED WITH EVEN AND UNLABORED RESPIRATIONS OBSERVED. NO SIGNS OF DISTRESS. PT ON MONITOR. VSS. WILL CONTINUE TO MONITOR
--- NOTE | 2021-02-23 11:50 | NUR ---
PT SLEEPING IN BED WITH EVEN AND UNLABORED RESPIRATIONS OBSERVED. NO SIGNS OF DISTRESS. PT ON MIS SPECIALIST. VSS. WILL CONTINUE TO MONITOR
[2021-02-23] MEDS ORDERED: AMOX-1000 PO (12:13)
[2021-02-23] MEDS ORDERED: OFLO5SOL27 OT (12:14)
[2021-02-23] MEDS ORDERED: ACET-9527 PO (12:16)
[2021-02-23] MEDS ORDERED: ACET-8386 PO (12:20)
--- NOTE | 2021-02-23 13:25 | NUR ---
PT SITTING UP IN BED WITH EVEN AND UNLABORED RESPIRATIONS. WILL CONTINUE TO MONITOR. AT BEDSIDE.
[2021-02-23] MEDS ORDERED: AMPICILLIN/SULBACTAM 3 GM VIAL IM ONE (14:00)
[2021-02-23] MEDS ORDERED: SITA50TA3 PO (14:03)
[2021-02-23] MEDS ORDERED: FAMO-90 PO (14:03)
[2021-02-23] MEDS ORDERED: AMPICILLIN/SULBACTAM 3 GM in NACL 0.9% 100 ML IV ONE (15:15)
[2021-02-23] MEDS ORDERED: AMPICILLIN/SULBACTAM 3 GM VIAL ONE (15:18)
--- NOTE | 2021-02-23 16:02 | NUR ---
PT REQUESTING FOOD. PER DR DELGADO, PT IS OKAY TO EAT. PT GIVEN APPLE SAUCE AND SANDWICH
--- NOTE | 2021-02-23 16:51 | NUR ---
PTS BP 198/88 AND COMPLAINING OF L EAR/FACE PAIN, REQUESTING PAIN MEDICATIONS, DR DELGADO MADE AWARE
[2021-02-23] MEDS ORDERED: ENALAPRILAT 2.5 MG/2 ML VIAL IVP ONE (16:55)
[2021-02-23] MEDS ORDERED: MORPHINE SULFATE 4 MG/ML SYR IVP ONE (16:55)
[2021-02-23] MEDS ORDERED: LORazepam 2 MG/ML VIAL IVP PRN (17:30)
[2021-02-23] MEDS ORDERED: DEXTROSE 50% 50 ML SYR IVP PRN (17:30)
[2021-02-23] MEDS ORDERED: HYDROcodone/APAP 5/325 MG 1 TAB TAB PO PRN (17:30)
[2021-02-23] MEDS ORDERED: INSULIN LISPRO SLIDING SCALE 100 UNITS/ML VIAL SUBQ PRN (17:30)
[2021-02-23] MEDS ORDERED: ACETAMINOPHEN 325 MG TAB PO PRN (17:30)
[2021-02-23] MEDS ORDERED: AMPICILLIN/SULBACTAM 3 GM in NACL 0.9% 100 ML IV SCH ×2 (18:00→18:20)
--- NOTE | 2021-02-23 18:02 | NUR ---
REPORT GIVEN TO JOHAN BARROW FOR ADMIT TO M/S 124A. ETA 15 MINS
--- NOTE | 2021-02-23 18:19 | NUR ---
Patient will be admitted to care of DR RAO. Admited to [facility]. Will go to room 124A. Belongings list completed. Report to JOHAN BARROW.
[2021-02-23 18:26] VITALS: BP 160/82
--- NOTE | 2021-02-23 18:27 | NUR ---
RECEIVED REPORT FROM ER NURSE FOR CONTINUITY OF CARE. PT IS AWAKE AND ALERT. A&OX4. ON RA WITH BREATHING UNLABORED. NO N/V AT THIS MOMENT. AMBULATORY INDEPENDENTLY. SKIN IS WARM, DRY, AND INTACT. IV IS IN THE RIGHT AC 22 GAUGE SALINE LOCK. PT IS STABLE AT THIS TIME. PLAN DISCUSSED.
--- NOTE | 2021-02-23 18:28 | NUR ---
BS CHECKED PER PT REQUESST. BS READING IS 123. PT STABLE.
--- NOTE | 2021-02-23 19:18 | NUR ---
GAVE BEDSIDE REPORT TO WOOD FINISHER APPRENTICE NURSE FOR CONTINUITY OF CARE. PLAN OF CARE DISCUSSED.
--- NOTE | 2021-02-23 20:00 | NUR ---
RECEIVED PATIENT AWAKE AND ALERT IN BED. NO ACTIVE VOMITING AT THIS TIME. PT DENIES NAUSEA. PT REPORTS LEFT EAR PAIN BUT REFUSES PAIN MEDICATION AT THIS TIME. NO DISCHARGE NOTED. REINFORCED TEACHING ON USING THE CALL LIGHT WHEN IN NEED OF ASSISTANCE. PT VERBALIZED UNDERSTANDING. PRESENT AT BEDSIDE
[2021-02-23 21:45] VITALS: BP 141/58
[2021-02-23] MEDS: BLOOD GLUCOSE MONITORING 1 DEV DEV FS SCH (21:48)
--- NOTE | 2021-02-24 02:52 | NUR ---
PT ASLEEP IN BED AT THIS TIME. NO S/S OF DISTRESS NOTED
[2021-02-24] MEDS: ONDANSETRON 4 MG/2 ML VIAL IVP PRN (03:51)
[2021-02-24 03:56] VITALS: BP 194/95
[2021-02-24] MEDS: CLONIDINE HYDROCHLORIDE 0.1 MG TAB PO PRN (04:00)
[2021-02-24] MEDS: MORPHINE SULFATE 2 MG/ML SYR IVP PRN ×2 (04:50→20:50)
[2021-02-24] MEDS: AMPICILLIN/SULBACTAM 3 GM in NACL 0.9% 100 ML IV SCH ×3 (04:54→20:49)
[2021-02-24 05:47] LABS: BASOPHILS % (AUTO) 0.4 % (0.0-2.0); EOSINOPHILS % (AUTO) 0.5 % (0.0-4.0); HEMATOCRIT 33.8 % (36-52); HEMOGLOBIN 11.6 g/dL (12.0-18.0); LYMPHOCYTES # (AUTO) 1.3 K/uL (2.0-11.5); LYMPHOCYTES % (AUTO) 16.8 % (20.5-51.1); MEAN CORPUSCULAR HEMOGLOBIN 31 pg (27-31); MEAN CORPUSCULAR HGB CONC 34 g/dL (33-37); MEAN CORPUSCULAR VOLUME 91.4 fL (80-94); MONOCYTES # (AUTO) 0.5 K/uL (0.8-1.0); MONOCYTES % (AUTO) 6.1 % (1.7-9.3); NEUTROPHILS % (AUTO) 76.2 % (42.2-75.2); PLATELET COUNT (AUTO) 198 K/uL (140-450); RED CELL DISTRIBUTION WIDTH 14.1 % (11.6-13.7); WHITE BLOOD COUNT (AUTO) 7.9 K/uL (4.8-10.8)
[2021-02-24 05:53] VITALS: BP 147/70
[2021-02-24 06:13] LABS: ANION GAP 13.2 (8-16); CARBON DIOXIDE 25.5 mmol/L (21-32); CREATININE 2.6 mg/dL (0.6-1.3); MAGNESIUM 1.7 mg/dL (1.8-2.4); POTASSIUM 3.7 mmol/L (3.5-5.1); TOTAL BILIRUBIN 0.5 mg/dL (0.0-1.0)
--- NOTE | 2021-02-24 07:18 | NUR ---
PT REPORT GIVEN TO AM NURSE. PT ENDORSED IN STABLE CONDITION
--- NOTE | 2021-02-24 07:30 | NUR ---
RECEIVED BEDSIDE REPORT FROM SYSTEMS ACCOUNTANT NURSE. PATIENT IS AWAKE, ALERT, AND COOPERATIVE. RESPIRATION EVEN UNLABORED ON ROOM AIR. NO DISTRESS NOTED. SKIN IS WARM AND DRY. IV PATENT AND INTACT, PLAN OF CARE WAS DISCUSSED. ALL SAFETY MEASURES IN PLACE. BED IS AT LOW POSITION. CALL LIGHT WITHIN REACH. WILL CONTINUE TO MONITOR
[2021-02-24 08:00] VITALS: BP 157/70
[2021-02-24] MEDS: BLOOD GLUCOSE MONITORING 1 DEV DEV FS SCH ×4 (08:06→20:48)
--- NOTE | 2021-02-24 08:14 | NUR ---
PATIENT HAS BEEN SCREENED AND CATEGORIZED MODERATE NUTRITION RISK. PATIENT WILL BE SEEN WITHIN 3-5 DAYS OF ADMISSION. 02/26/21 02/28/[address]
--- NOTE | 2021-02-24 09:00 | NUR ---
ALL SCHEDULED MEDS WERE GIVEN PER ORDER. WILL CONTINUE TO MONITOR
[2021-02-24] MEDS ORDERED: ONDA4TAB PO (11:04)
[2021-02-24] MEDS ORDERED: KETOROLAC 30 MG/ML VIAL IVP SCH (11:30)
--- NOTE | 2021-02-24 11:40 | NUR ---
PATIENT REFUSED TO BE DISCHARGE, PER PATIENT HE STILL DOESN'T FEEL GOOD. SPOKE WITH MD. MD AT THE BEDSIDE RIGHT NOW SPEAKING WITH THE PATIENT
--- NOTE | 2021-02-24 11:47 | NUR ---
PT COMPLAINED OF HEADACHE PER MD GIVE ONE TIME DOSE OF IV TORADOL 30MG. WILL CONTINUE TO MONITOR
--- NOTE | 2021-02-24 15:57 | NUR ---
DC PLANNING: PATIENT ADMITTED FOR DIZZINESS RELATED TO CHRONIC EAR PROBLEMS. HAS H/O SURGERY AT [facility], PRESENTED TO ED WITH C/O N/V RELATED TO DIZZINESS. IS DIABETIC, STATES HE SEES HIS PCP AT LEAST MONTHLY TO MONITOR HIS DM AND HTN. STATES HE IS COMPLIANT WITH MEDICATION FOR DM AND HTN, HAS DME OF GLUCOMETER AND A B/P MONITOR. PATIENT LIVES IN A GROUND FLOOR APARTMENT WITH IS AND CHILD, IS APPLYING FOR SSDI. STATES HE HAD HOME HEALTH A YEAR AGO BUT CAN'T REMEMBER THE NAME OF THE AGENCY. CM WILL FOLLOW FOR NEEDS.
[2021-02-24 16:00] VITALS: BP 140/80
--- NOTE | 2021-02-24 19:16 | NUR ---
ENDORSED PATIENT TO RUG DYER NURSE FOR CONTINUITY OF CARE
[2021-02-24 20:20] VITALS: BP 133/72
--- NOTE | 2021-02-24 20:30 | NUR ---
MED PASS DONE. PT W/ C/O SEVERE R FACIAL PAIN, 04/08. MEDICATED W/ MORPHINE IVP AND PO TYLENOL FOR BREAK- THROUGH PAIN. PT TOLERATED PO MEDS WELL. PT APPEARS TO BE IN DISTRESS FROM FACIAL PAIN. S.O AT BEDSIDE. RESP REG NON-LABORED. WILL CONT TO MONITOR.
--- NOTE | 2021-02-24 21:15 | NUR ---
Received bedside report from AM RN. Pt in bed w/ S.O. at bedside, both watching TV. Pt AA OX4, Resp reg non-labored, no noted distress.
[2021-02-25] MEDS: ONDANSETRON 4 MG/2 ML VIAL IVP PRN (03:54)
[2021-02-25] MEDS: CLONIDINE HYDROCHLORIDE 0.1 MG TAB PO PRN (03:58)
[2021-02-25 04:00] VITALS: BP 201/89
[2021-02-25 05:30] VITALS: BP 165/81
[2021-02-25] MEDS: AMPICILLIN/SULBACTAM 3 GM in NACL 0.9% 100 ML IV SCH ×2 (06:25→12:33)
[2021-02-25] MEDS: BLOOD GLUCOSE MONITORING 1 DEV DEV FS SCH ×2 (06:34→11:30)
--- NOTE | 2021-02-25 07:35 | NUR ---
REPORT TO AM RN. PT ASLEEP IN NAD. BS 93 MG/ DL
[2021-02-25] MEDS: MORPHINE SULFATE 2 MG/ML SYR IVP PRN (11:23)
[2021-02-25 11:39] VITALS: BP 159/90
--- NOTE | 2021-02-25 13:15 | NUR ---
pATIENT BEING DISCHARGED. 13:00 ANTIBIOTIC COMPLETED PRIOR TO DISCHARGE. PATENT TEACHING COMPLETED ON NEW MEDICATIONS, FOLLOW UP VISIT, HOME MED'S ACTIVITY, FALL RISK AND DISEASE PROCESS. ENSTRUCTED TO MAKE SURE TO RESUME HOME MEDS BP SLIGHTLY HIGH DURING ADMISSION REQUIRING IV BP MEDICATION. FAMILY HERE TO ASSIST WITH TAKING PATIENT HOME. GIVEN 4 MG ZOFRAN FOR NAUSEA PRIOR TO DISCHARGE. PLACED IN WHEELCHAIR AND TRANSPORTED WITH FAMILY TO FAMILY CAR AND DISCHARGED.
== END 2021-02-25 13:35 | disposition home or self-care (01) ==
LOC: MED 01:50 → MTU 17:31
PROVIDERS: ADMIT Hospitalist; ATTEND Hospitalist
DX: R42 Dizziness and giddiness (principal); R11.2 Nausea with vomiting, unspecified; H66.92 Otitis media, unspecified, left ear; I12.9 Hypertensive chronic kidney disease with stage 1 through stage 4 chronic kidney disease, or unspecified chronic kidney disease; E11.22 Type 2 diabetes mellitus with diabetic chronic kidney disease; N18.9 Chronic kidney disease, unspecified; E78.5 Hyperlipidemia, unspecified; Z79.82 Long term (current) use of aspirin; Z79.899 Other long term (current) drug therapy
CPT/HCPCS: 36415; 70450; 70480; 80053; 82948; 83605; 83735; 85025; 87040; 87081; 87426; 96361; 96365; 96366; 96372; 96375; 96376; 99285; G0378; J0295; J1644; J1815; J1885; J2270; J2405; J2765; J3490

== ENCOUNTER 2021-09-17 12:44 | Emergency (ER) | payer OTHER, SELFPAY ==
[~2021-09-17] VITALS: Ht 175.3 cm; Wt 68.6 kg
[~2021-09-17 12:44] MED LIST changes: -AMLO-3 PO; -ASPI-1856 PO; +CARV25TA PO; -CIPR7.5S OT; -COROTSOL OT; +FURO-570 PO; -IBUP-2213 PO; -IBUP-2218 PO; -LISI10TA30 PO; +OFLO5SOL27 OT; -ONDA-24 SL; +ONDA4TAB PO; +PANT40EC PO; -PROM25TA27 PO; +SITA50TA3 PO; +SODI650T2 PO
[2021-09-17 12:45] VITALS: BP 181/80
--- NOTE | 2021-09-17 12:56 | NUR ---
PT AMB TO BED 11
--- NOTE | 2021-09-17 13:09 | NUR ---
DR. SHELTON BEDSIDE EVALUATING PT
--- NOTE | 2021-09-17 13:12 | NUR ---
PT REFUSES TO CHANGE INTO MEDICAL GOWN, REFUSES TO GIVE MEDICAL BACKGROUND
[2021-09-17] MEDS ORDERED: AMOX-1000 PO (13:41)
[2021-09-17] MEDS: HYDROcodone/APAP 5/325 MG 1 TAB TAB PO ONE (13:42)
[2021-09-17] MEDS: KETOROLAC 30 MG/ML VIAL IM ONE (13:43)
[2021-09-17] MEDS: AMOXIL/CLAVULANATE 875/125 MG 1 TAB PO ONE (13:46)
--- NOTE | 2021-09-17 14:08 | NUR ---
Patient discharged with v/s stable. Written and verbal after care instructions given and explained with teachback. Patient alert, oriented and verbalized understanding of instructions. Ambulatory with steady gait. All questions addressed prior to discharge. ID band removed. Patient advised to follow up with PMD. Rx of AUGMENTIN given. Patient educated on indication of medication including possible reaction and side effects. Opportunity to ask questions provided and answered.
== END 2021-09-17 14:08 | disposition home or self-care (01) ==
LOC: MED 12:44
DX: G44.209 Tension-type headache, unspecified, not intractable (principal); H66.93 Otitis media, unspecified, bilateral; G89.29 Other chronic pain; M54.59 Other low back pain; E11.9 Type 2 diabetes mellitus without complications; I10 Essential (primary) hypertension; Z79.899 Other long term (current) drug therapy
CPT/HCPCS: 96372; 99283; J1885

== ENCOUNTER 2021-09-25 13:33 | Emergency (ER) | payer OTHER ==
[~2021-09-25] VITALS: Ht 175.3 cm; Wt 68.0 kg
[~2021-09-25 13:33] MED LIST changes: +AMOX-1000 PO
[2021-09-25 13:40] VITALS: BP 127/53
[2021-09-25] MEDS ORDERED: ACETAMINOPHEN EXTRA STRENGTH 500 MG TAB PO ONE (14:20)
[2021-09-25] MEDS ORDERED: NACL 0.9% 500 ML IV ONE (14:20)
--- NOTE | 2021-09-25 14:20 | NUR ---
PT REFUSED EKG. DR JAMES MADE AWARE.
[2021-09-25] MEDS ORDERED: IBUPROFEN 400 MG TAB PO ONE (14:30)
--- NOTE | 2021-09-25 14:35 | NUR ---
65/M BIB SELF WITH C/O INTERMITTENT HEADACHE AND DIZZINESS X 7 DAYS. PT A&OX4, AMBULATORY, STATES HE WAS SEEN HERE TWO WEEKS AGO FOR THE SAME SYMPTOMS BUT REPORTS SYMPTOMS ARE NOT IMPROVING. STATES TAKING TYLENOL WITH NO RELIEF. DENIES VISION CHANGES, WEAKNESS. PT REPORTS HEADACHE TO RIGHT SIDE OF HEAD; 9/10, PRESSURE/THROBBING/CONSTANT, NON-RADIATING PAIN. PT DENIES NAUSEA, VOMITING, DIARRHEA, CHEST PAIN, VISION CHANGES, SOB. PT REFUSING IV INSERTION, BLOOD WORK, URINE COLLECTION, AND IV FLUIDS. DR. JAMES MADE AWARE. PT PROVIDED WITH GOWN. BED LOCKED IN LOWEST POSITION, SIDE RAILS X 1. MEDHX: DM, HTN, CHOLESTEROL, KIDNEY FAILURE ALLERGIES: NKA
--- NOTE | 2021-09-25 14:39 | NUR ---
Patient transported to CT by wheelchair.
--- NOTE | 2021-09-25 14:47 | NUR ---
Patient returned from CT by wheelchair.
--- NOTE | 2021-09-25 15:30 | NUR ---
Pt states minor relief to pain; 7/10 at this time.
[2021-09-25] MEDS ORDERED: MECL-303 PO (15:52)
[2021-09-25 16:00] VITALS: BP 136/61
--- NOTE | 2021-09-25 16:19 | NUR ---
Patient discharged with v/s stable. Written and verbal after care instructions given and explained. Patient verbalized understanding. Ambulatory with steady gait. All questions addressed prior to discharge. Advised to follow up with PMD.
== END 2021-09-25 16:19 | disposition home or self-care (01) ==
LOC: MED 13:33
DX: R51.9 Headache, unspecified (principal); E11.9 Type 2 diabetes mellitus without complications; I10 Essential (primary) hypertension; Z79.899 Other long term (current) drug therapy
CPT/HCPCS: 70450; 99284

== ENCOUNTER 2021-11-22 14:57 | Inpatient (IN) | payer OTHER ==
[~2021-11-22] VITALS: Ht 175.3 cm; Wt 64.4 kg
[~2021-11-22 14:57] MED LIST changes: +MECL-303 PO
[2021-11-22 15:05] VITALS: BP 126/63
--- NOTE | 2021-11-22 15:11 | NUR ---
PT AMB WITH WALKER TO BED 4.
[2021-11-22 15:39] LABS: BASOPHILS # (AUTO) 0.1 K/uL (0.00-0.22); BASOPHILS % (AUTO) 1.2 % (0.0-2.0); EOSINOPHILS # (AUTO) 0.2 K/uL (0-0.4); EOSINOPHILS % (AUTO) 3.3 % (0.0-4.0); HEMATOCRIT 30.9 % (36-52); HEMOGLOBIN 10.2 g/dL (12.0-18.0); LYMPHOCYTES # (AUTO) 1.2 K/uL (2.0-11.5); MEAN CORPUSCULAR HEMOGLOBIN 31 pg (27-31); MEAN CORPUSCULAR HGB CONC 33 g/dL (33-37); MEAN CORPUSCULAR VOLUME 92.4 fL (80-94); MONOCYTES # (AUTO) 0.4 K/uL (0.8-1.0); MONOCYTES % (AUTO) 6.5 % (1.7-9.3); NEUTROPHILS # (AUTO) 4.9 K/uL (1.8-7.7); PLATELET COUNT (AUTO) 149 K/uL (140-450); RED BLOOD CELL COUNT(AUTO) 3.34 MIL/uL (4.20-6.10); RED CELL DISTRIBUTION WIDTH 16.3 % (11.6-13.7); WHITE BLOOD COUNT (AUTO) 6.8 K/uL (4.8-10.8)
[2021-11-22 16:31] LABS: ALBUMIN 3.1 g/dL (3.4-5.0); ANION GAP 10.7 (8-16); CARBON DIOXIDE 26.8 mmol/L (21-32); CREATININE 2.6 mg/dL (0.6-1.3); POTASSIUM 5.5 mmol/L (3.5-5.1); TOTAL BILIRUBIN 0.4 mg/dL (0.0-1.0)
[2021-11-22] MEDS ORDERED: POTASSIUM CHLORIDE 10 MEQ TABER PO PRN (18:05)
[2021-11-22] MEDS ORDERED: MAGNESIUM OXIDE 400 MG TAB PO PRN (18:05)
[2021-11-22] MEDS ORDERED: ACETAMINOPHEN 325 MG TAB PO PRN (18:05)
[2021-11-22] MEDS ORDERED: ONDANSETRON 4 MG/2 ML VIAL IVP PRN (18:05)
[2021-11-22] MEDS ORDERED: MORPHINE SULFATE 4 MG/ML SYR IVP PRN (18:05)
[2021-11-22] MEDS ORDERED: MAG SULF 2000 MG/WATER PREMIX 50 ML IV PRN (18:05)
[2021-11-22] MEDS ORDERED: KCL 20 MEQ/WATER INJ PREMIX 200 ML IV PRN (18:05)
--- NOTE | 2021-11-22 18:08 | NUR ---
Patient will be admitted to care of [facility]. Admited to TELE. Will go to room 111 B. Belongings list completed. Report to SUSIE. Addendum: 11/23/21 at 0138 by [email or web address] PATIENT TRANSFERED TO THE FLOOR 11/22/21 AT 7793
[2021-11-22] MEDS ORDERED: INSULIN LISPRO SLIDING SCALE 100 UNITS/ML VIAL SUBQ PRN (18:10)
[2021-11-22] MEDS ORDERED: DEXTROSE 50% 50 ML SYR IVP PRN (18:10)
--- NOTE | 2021-11-22 19:30 | NUR ---
REPORT RECIVED FROM [facility]. TRANSFER OF CARE AT THIS TIME
--- NOTE | 2021-11-22 19:40 | NUR ---
SPOKE TO DR BOLANOS IN REGARDS TO HEP DRIP. ADVISED TO START DRIP WHILE IN THE ER
[2021-11-22] MEDS ORDERED: HEPARIN PER PHARMACY MC PRN (19:45)
[2021-11-22] MEDS: NACL 0.9% 1,000 ML IV SCH (20:14)
[2021-11-22] MEDS ORDERED: ONDANSETRON 4 MG ODT ONE (20:34)
[2021-11-22 21:10] VITALS: BP 150/56
--- NOTE | 2021-11-22 21:10 | NUR ---
PT TRANSPORTED VIA GURNEY FROM ED. PT IS AAOX4. PT IS [place]. PT AMBULATES WELL WITH WALKER. CLEAR SPEECH. CLEAR LUNG SOUNDS. NO HEART MURMUR NOTED. ABD SOFT AND NON-TENDER. PT HAS LEFT AC 20 GAUGE WITH NS 80 ML/HR. VSS. NO ACUTE DISTRESS. NO COMPLAINS FROM THE PT. PT EDUCATED HR ADMINISTRATIVE ASSISTANT LIGHT SYSTEM. CALL LIGHT WITHIN REACH. ALL SAFETY MEASURES TAKEN. WILL CONTINUE TO MONITOR THE PT.
[2021-11-22] MEDS: BLOOD GLUCOSE MONITORING 1 DEV DEV FS SCH (21:46)
[2021-11-22] MEDS: hePARIN / DEXT 5% PREMIX 250 ML IV SCH (22:04)
--- NOTE | 2021-11-22 22:07 | NUR ---
HEPARIN DRIP STARTED PER PHARMACY PROTOCOL. PT IS DOING WELL. NO COMPLAINS. WILL CONTINUE TO MONITOR THE PT. Addendum: 11/23/21 at 0207 by Matthias Nelson RN HEPARIN DRIP STARTED AT 1200 UNITS/HR PER PHARMACY PROTOCOL.
[2021-11-23] VITALS: BP 145/56
--- NOTE | 2021-11-23 | NUR ---
PT IS AWAKE. PT IS NOT IN ANY ACUTE DISTRESS. VSS. NO COMPLAINS FROM THE PT. IVF RUNNING PER MD ORDER. HEPARIN RUNNING PER PHARMACY PROTOCOL. CALL LIGHT WITHIN REACH. ALL SAFETY MEASURES TAKEN. WILL CONTINUE TO MONITOR THE PT.
--- NOTE | 2021-11-23 02:05 | NUR ---
PT IS SLEEPING IN BED COMFORTABLY. PT IS NOT IN ANY ACUTE DISTRESS. IVF RUNNING PER MD ORDER. HEPARIN RUNNING PER PHARMACY PROTOCOL. CALL LIGHT WITHIN REACH. ALL SAFETY MEASURES TAKEN. WILL CONTINUE TO MONITOR THE PT.
[2021-11-23] MEDS: HYDROcodone/APAP 5/325 MG 1 TAB TAB PO PRN (03:07)
[2021-11-23 04:00] VITALS: BP 104/57
[2021-11-23 04:24] LABS: BASOPHILS # (AUTO) 0.1 K/uL (0.00-0.22); BASOPHILS % (AUTO) 1.2 % (0.0-2.0); EOSINOPHILS # (AUTO) 0.3 K/uL (0-0.4); HEMATOCRIT 28.6 % (36-52); HEMOGLOBIN 9.4 g/dL (12.0-18.0); LYMPHOCYTES # (AUTO) 1.6 K/uL (2.0-11.5); LYMPHOCYTES % (AUTO) 23.8 % (20.5-51.1); MEAN CORPUSCULAR HEMOGLOBIN 31 pg (27-31); MEAN CORPUSCULAR HGB CONC 33 g/dL (33-37); MEAN CORPUSCULAR VOLUME 92.6 fL (80-94); MONOCYTES # (AUTO) 0.5 K/uL (0.8-1.0); MONOCYTES % (AUTO) 6.6 % (1.7-9.3); NEUTROPHILS # (AUTO) 4.4 K/uL (1.8-7.7); NEUTROPHILS % (AUTO) 64.4 % (42.2-75.2); PLATELET COUNT (AUTO) 130 K/uL (140-450); RED BLOOD CELL COUNT(AUTO) 3.08 MIL/uL (4.20-6.10); RED CELL DISTRIBUTION WIDTH 15.9 % (11.6-13.7); WHITE BLOOD COUNT (AUTO) 6.9 K/uL (4.8-10.8)
[2021-11-23 04:53] LABS: ALBUMIN 2.7 g/dL (3.4-5.0); ANION GAP 10.1 (8-16); CARBON DIOXIDE 27.5 mmol/L (21-32); CREATININE 2.5 mg/dL (0.6-1.3); MAGNESIUM 2.4 mg/dL (1.8-2.4); PHOSPHORUS 4.4 mg/dL (2.5-4.9); POTASSIUM 5.6 mmol/L (3.5-5.1); TOTAL BILIRUBIN 0.4 mg/dL (0.0-1.0)
--- NOTE | 2021-11-23 05:54 | NUR ---
PT IS SLEEPING IN BED COMFORTABLY. PT IS NOT IN ANY DISTRESS. IVF RUNNING PER MD ORDER. HEPARIN STARTED WAS STOPPED AND STARTED AT 1000ML/HR PER PHARMACY PROTOCOL. PT LAST PTT WAS 125.7. WILL CONTINUE TO MONITOR THE PT.
[2021-11-23] MEDS: NACL 0.9% 1,000 ML IV SCH ×2 (06:50→19:05)
--- NOTE | 2021-11-23 07:29 | NUR ---
ENDORSED PT TO DAY SHIFT RN FOR CONTINUITY OF CARE. PT IS STABLE.
--- NOTE | 2021-11-23 07:30 | NUR ---
RECEIVED PATIENT REPORT FROM STRAW HAT BRIM CUTTER OPERATOR NURSE FOR CONTINUITY OF CARE. PT IS AOX4, ABLE TO MAKE NEEDS KNOWN. RESPIRATIONS EVEN AND UNLABORED. ON ROOM AIR AND NO DISTRESS NOTED. SKIN IS WARM, DRY, AND INTACT. IV SITE ON LAC 20G AND LH 22 G. INTACT AND PATENT. IVF INFUSING WELL. PT IS ON HEP DRIP INFUSING AT 1000 UNITS. DENIES PAIN AT THE MOMENT. PLAN OF CARE DISCUSSED. SAFETY PRECAUTIONS IN PLACE. CALL LIGHT WITHIN REACH. WILL CONTINUE TO MONITOR.
[2021-11-23 08:00] VITALS: BP 131/66
--- NOTE | 2021-11-23 08:25 | NUR ---
PATIENT HAS BEEN SCREENED AND CATEGORIZED LOW NUTRITION RISK. PATIENT WILL BE SEEN WITHIN 7 DAYS OF ADMISSION. 11/29/[address]
[2021-11-23] MEDS: BLOOD GLUCOSE MONITORING 1 DEV DEV FS SCH ×4 (08:29→21:24)
--- NOTE | 2021-11-23 08:52 | NUR ---
PTT CAME BACK 95.9. WILL HOLD FOR 1 HOUR PER PROTOCOL. Addendum: 11/23/21 at 2145 by Lucius Torres RN ERROR: TIME SHOULD BE 2051
--- NOTE | 2021-11-23 09:30 | NUR ---
ALL SCHEDULED MEDS GIVEN. PT IS STABLE. NO DISTRESS NOTED. WILL CONTINUE TO MONITOR.
--- NOTE | 2021-11-23 11:46 | NUR ---
BLOOD SUGAR CHECK WAS 116. NO INSULIN COVERAGE NEEDED
[2021-11-23 12:00] VITALS: BP 123/60
--- NOTE | 2021-11-23 13:00 | NUR ---
DC PLANNING PATIENT IS A 66-YEAR-OLD MALE ADMITTED TO [facility]/ED ON 11/22/2021 DUE TO COMPLAINS OF CHEST PAIN AND RIGHT ARM SWELLING FOR ABOUT 2 DAYS. PATIENT HAS HX. OF DM, AND HTN. JOHN MET WITH PATIENT AT BEDSIDE TO DISCUSS AND GATHER HIS COLLATERAL INFORMATION. PATIENT WAS AWAKE AND ALERT DURING THE MEETING WITH SW. PT. REPORTED LIVING AT HOME WITH HIS SIGNIFICANT OTHER PER PATIENT HE HAS GOOD FAMILY SUPPORT FROM HIS ADULT SON. PATIENT REPORTED THAT HIS GIRLFRIEND JADEN STROUD IS HIS EMERGENCY CONTACT AND MEDICAL DECISION MAKER. PATIENT REPORTED HAVING A.D. COMPLETED AND IN PLACE THEREFORE DECLINED A.D. FORMS PROVIDED BY JOHN AT THE TIME OF MEETING. PER PATIENT HE WAS RECENTLY ADMITTED AT [facility] BUT AFTER HIS DC. PATIENT STARTED TO FEEL SICK AGAIN AND HIS SON BROUGHT HIM TO [facility]. PATIENT STATED NOT HAVING ANY ISSUES GETTING OR TAKING ANY OF HIS MEDICATIONS, PATIENT REPORTS BEEN COMPLIANT AND GETTING ALL HIS MEDICATIONS FROM [facility] IN [facility]. NEAR HIS HOME. PATIENT STATED HAVING ONLY A WALKER HIS DME AT HOME AND BEEN ABLE TO MOVE WITH ASSISTANCE AND WITH EQUIPMENT. PATIENT STATED THAT HIS PCP IS DR. JAZMIN ABARCA AND REPORTED THAT HIS LAST VISIT WITH PCP WAS ABOUT 3 WEEKS AGO. SW DISCUSSED WITH PATIENT THE IMPORTANCE OF MAKING A FOLLOW UP APPOINTMENT AFTER HIS DC FROM [facility]. PATIENT AGREED FOR SW TO MAKE HIS FOLLOW UP APPOINTMENT WITHIN 3-7 DAYS AFTER DISCHARGE. 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 SW WILL FOLLOW UP NEEDED. Addendum: 11/23/21 at 1745 by Rohini LANGFORD Amended: Links added.
--- NOTE | 2021-11-23 13:47 | NUR ---
FAXED OVER AUTHORIZATION DISCLOSURE OF HEALTH INFORMATION TO [facility]
[2021-11-23] MEDS: hePARIN / DEXT 5% PREMIX 250 ML IV SCH ×3 (13:53→22:19)
--- NOTE | 2021-11-23 13:58 | NUR ---
PTT WAS 41. ADMINISTERED 2500 UNITS OF HEPARIN BOLUS IVP AND TITRATED HEPARIN DRIP TO 1100 UNITS/HR
[2021-11-23] MEDS ORDERED: SODIUM POLYSTYRENE 15 GM/60 ML UDBTL PO SCH (14:08)
[2021-11-23 16:00] VITALS: BP 114/54
--- NOTE | 2021-11-23 17:45 | NUR ---
CHECKED ON PATIENT. PT IS STABLE. NO DISTRESS NOTED. WILL CONTINUE TO MONITOR.
--- NOTE | 2021-11-23 19:23 | NUR ---
ENDORSED TO TOW TRUCK DRIVER NURSE FOR CONTINUITY OF CARE. PT IS STABLE.
--- NOTE | 2021-11-23 19:25 | NUR ---
RECEIVED PATIENT REPORT FROM DAY SHIFT NURSE FOR CONTINUITY OF CARE. PT IS AOX4.ON ROOM AIR, RESPIRATIONS EVEN AND UNLABORED. SKIN IS WARM, DRY, AND INTACT. IV SITE ON LAC 20G RUNNING 1100UNITS/HR AND LH 22 G NS @ 80MLS/HR. INTACT AND PATENT. IVF INFUSING WELL. DENIES PAIN AT THE MOMENT. PLAN OF CARE DISCUSSED. ALL SAFETY PRECAUTIONS IN PLACE. CALL LIGHT WITHIN REACH. WILL CONTINUE TO MONITOR.
[2021-11-23 20:00] VITALS: BP 146/58
--- NOTE | 2021-11-23 20:52 | NUR ---
PTT CAME BACK 95.9. WILL HOLD FOR 1 HOUR PER PROTOCOL.
--- NOTE | 2021-11-23 21:45 | NUR ---
BLOOD SUGAR WAS CHECKED. IT WAS 172. PT REFUSED INSULIN COVERAGE.
--- NOTE | 2021-11-23 22:15 | NUR ---
HEPARIN DRIP RESUMED AND CHANGED RATE TO 900UNITS/HR PER PROTOCOL.
[2021-11-24] VITALS: BP 119/61
--- NOTE | 2021-11-24 00:38 | NUR ---
VITALS SIGNS STABLE. PT NO S/SX OF DISTRESS NOTED.BREATHING EQUAL AND UNLABORED.CALL LIGHT WITHIN REACH.ALL PRECAUTIONS IN PLACE. WILL CONTINUE TO MONITOR.
[2021-11-24] MEDS: HYDROcodone/APAP 5/325 MG 1 TAB TAB PO PRN (02:22)
[2021-11-24 03:25] LABS: BASOPHILS # (AUTO) 0.1 K/uL (0.00-0.22); BASOPHILS % (AUTO) 1.2 % (0.0-2.0); EOSINOPHILS # (AUTO) 0.2 K/uL (0-0.4); EOSINOPHILS % (AUTO) 3.5 % (0.0-4.0); HEMATOCRIT 26.4 % (36-52); HEMOGLOBIN 8.9 g/dL (12.0-18.0); LYMPHOCYTES # (AUTO) 1.2 K/uL (2.0-11.5); LYMPHOCYTES % (AUTO) 23.4 % (20.5-51.1); MEAN CORPUSCULAR HEMOGLOBIN 31 pg (27-31); MEAN CORPUSCULAR HGB CONC 34 g/dL (33-37); MEAN CORPUSCULAR VOLUME 91.9 fL (80-94); MONOCYTES # (AUTO) 0.3 K/uL (0.8-1.0); MONOCYTES % (AUTO) 6.3 % (1.7-9.3); NEUTROPHILS # (AUTO) 3.5 K/uL (1.8-7.7); NEUTROPHILS % (AUTO) 65.6 % (42.2-75.2); PLATELET COUNT (AUTO) 124 K/uL (140-450); RED BLOOD CELL COUNT(AUTO) 2.87 MIL/uL (4.20-6.10); RED CELL DISTRIBUTION WIDTH 15.9 % (11.6-13.7); WHITE BLOOD COUNT (AUTO) 5.3 K/uL (4.8-10.8)
[2021-11-24 03:48] LABS: ALBUMIN 2.5 g/dL (3.4-5.0); ANION GAP 10.6 (8-16); CARBON DIOXIDE 25.2 mmol/L (21-32); CREATININE 2.2 mg/dL (0.6-1.3); MAGNESIUM 2.2 mg/dL (1.8-2.4); PHOSPHORUS 4.4 mg/dL (2.5-4.9); POTASSIUM 4.8 mmol/L (3.5-5.1); TOTAL BILIRUBIN 0.3 mg/dL (0.0-1.0)
--- NOTE | 2021-11-24 03:50 | NUR ---
PTT CAME BACK 51.6. NO CHANGE IN RATE PER PROTOCOL.
[2021-11-24 04:00] VITALS: BP 125/63
[2021-11-24] MEDS: BLOOD GLUCOSE MONITORING 1 DEV DEV FS SCH ×4 (06:37→20:33)
--- NOTE | 2021-11-24 07:17 | NUR ---
PT IS STABLE. NO ACUTE EVENTS THROUGHOUT THE NIGHT. NO S/SX OF DISTRESS NOTED. NO COMPLAINS OF PAIN AT THIS MOMENT. ALL NEEDS ATTENDED. ALL PRECAUTIONS IN PLACE. WILL ENDORSE TO AM SHIFT NURSE.
--- NOTE | 2021-11-24 07:30 | NUR ---
RECEIVED REPORT FROM REIMBURSEMENT AUDITOR NURSE. NO S/S OF DISTRESS. CALL LIGHT IN REACH. ALL SAFETY MEASURES IN PLACE. HEPARIN DRIP RUNNING AT 900UN/HR. LAST PTT NO CHANGE, NEXT DRAW 0955
[2021-11-24] MEDS: NACL 0.9% 1,000 ML IV SCH ×2 (07:42→20:21)
[2021-11-24 08:00] VITALS: BP_SYST 125; BP_SYST 152; BP_DIAS 52; BP_DIAS 63
--- NOTE | 2021-11-24 10:33 | NUR ---
PT RESTING IN BED, EYES CLOSED. NO S/S OF DISTRESS. CALL LIGHT IN REACH. ALL SAFETY MEASURES IN PLACE
[2021-11-24 12:00] VITALS: BP 164/62
--- NOTE | 2021-11-24 13:39 | NUR ---
DISCONTINUED HEPARIN DRIP, PT TRANSFERRED TO [facility]. TELE BOX REMOVED. TO ORDER PO ELIQUIS
--- NOTE | 2021-11-24 14:30 | NUR ---
DC PLANNING: CM MET PATIENT'S AND PT AT THE BED SIDE , STATED THEY WANTED TO CONTINUE WITH [facility]. PATIENT HAS AN ORDER TO CONTINUE IV ABX. CALLED THE [facility] [phone] SPOKE WITH PALMA NOTIFIED HER THAT PATIENT HAS AN ORDER FOR IV ABX TO BE CONTINUED. FAXED ALL THE PAPERWORK TO [phone]. CM TO FOLLOW Addendum: 11/24/21 at 1642 by Mary Negrete RN DC PLANNING: RECEIVED A CALL FROM [facility] SPOKE WITH PALMA STATED THEY ACCEPTED PATIENT AND WILL RESUME THE CARE TOMORROW TO ADMINISTER IV ABX FLAGYL 500MG Q8HRS AND CEFEPIME 2 GM Q 24 HRS. PT CAN BE DISCHARGED AFTER PICC LINE INSERTION. CM TO FOLLOW Addendum: 11/25/21 at 1224 by Mary Negrete RN DC PLANNING: CALLED [facility] [phone] SPOKE WITH YUNIER HARRISON STATED THE MEDICATION WILL BE ARRIVED AT HOME BY 4 PM. CALLED [facility] [phone] SPOKE WITH JESSENIA STATED WILL ARRANGE HOME HEALTH RN TO GO HOME AND ADMINISTER AFTER 4 PM .
[2021-11-24] MEDS ORDERED: FLA500I IV (14:56)
[2021-11-24] MEDS ORDERED: CEFE2SOL IV (14:57)
[2021-11-24] MEDS ORDERED: APIX5TAB PO (14:58)
[2021-11-24] MEDS ORDERED: CEFEPIME 2,000 MG in DEXTROSE 5% 100 ML IV SCH (16:00)
--- NOTE | 2021-11-24 18:38 | NUR ---
PICC LINE NURSE AT BEDSIDE. NO S/S OF DISTRESS. CALL LIGHT IN REACH. ALL SAFETY MEASURES IN PLACE
--- NOTE | 2021-11-24 19:26 | NUR ---
ENDORSED PT TO TELEGRAPH MESSENGER NURSE. PT STABLE
--- NOTE | 2021-11-24 19:26 | NUR ---
REPORT RECEIVED FROM DANIAL GROSS. CARLY MACKEY
[2021-11-24 19:59] VITALS: BP 197/51
[2021-11-24 20:38] VITALS: BP 197/51
[2021-11-24] MEDS ORDERED: APIXABAN 2.5 MG TAB PO SCH (21:00)
[2021-11-24] MEDS ORDERED: metroNIDAZOLE 500 MG/NS PREMIX 100 ML IV SCH (21:00)
--- NOTE | 2021-11-24 23:11 | NUR ---
LATE ENTRY: PATIENT PREPARATION FOR DISCHARGE TO HOME WITH ALL BELONGINGS GATHERED. COPY OF DISCHARGE PAPERWORK AND INSTRUCTIONS ON THE SAME GIVEN. PATIENT AND SIGNIFICANT OTHER, JADEN, PRESENT AND ASKED QUESTION ABOUT MOHSEN. TOE STRIPPER GAVE INSTRUCTION TO ELECTROLOGIST FROM PREFERRED PHARMACY. PATIENT ACCOMPANIED BY JADEN IN PRIVATE AUTOMOBILE TO HOME. JADEN VERBALIZES UNDERSTANDING OF DISCHARGE INSTRUCTION AND WILL FOLLOW UP DIRECTED WITH PRIMARY PHYSICIAN. PICC LINE FLUSH AND CAP X2 LUMEN WITH NORMAL SALINE. DEMONSTRATION OF PROCEDURE TO JADEN PER HER REQUEST. SHE VERBALIZES UNDERSTANDING OF LOCKING PORTS AFTER EACH USE ALONG WITH CAPS AND ALCOHOL SWAB STERILIZATION PRIOR TO ACCESSING PORTS WITH SALINE FLUSH BEFORE AND AFTER MEDICATION. CARLY MACKEY RN
--- NOTE | 2021-11-28 11:30 | NUR ---
DC PLANNING SW CALL PATIENT'S PCP OFFICE AT TO MAKE A FOLLOW UP APPOINTMENT FOR PATIENT AFTER DC FROM [facility], SW SPOKE TO JASON WHO SCHEDULED PATIENT'S FOLLOW UP APPOINTMENT FOR 11/29/2021 AT 3:00PM WITH DR. JAZMIN ABARCA SW THANKED HER AND ENDED THE CALL. SW CALL PATIENT' SIGNIFICANT OTHER MAKEDA STROUD AT TO PROVIDED HER AND PATIENT WITH HIS APPOINTMENT INFORMATION FOR HIS UPCOMING APPOINTMENT ON 11/29/2021 AT 3:00PM WITH DR. JAZMIN ABARCA. PATIENT'S SIGNIFICANT OTHER AGREED TO TAKE PATIENT TO HIS APPOINTMENT AND THANKED THIS VP [employer]NA[employer] FOR THE INFORMATION BEFORE ENDING THE CALL.
== END 2021-11-24 22:20 | disposition home health service (06) | DRG 206 ==
LOC: MED 14:57 → MTU 18:08
PROVIDERS: ADMIT Student in an Organized Health Care Education/Training Program; ATTEND Student in an Organized Health Care Education/Training Program
PROC: 02HV33Z Insertion of Infusion Device into Superior Vena Cava, Percutaneous Approach (ICD-10-PCS; principal; 2021-11-19)
PROC: B548ZZA Ultrasonography of Superior Vena Cava, Guidance (ICD-10-PCS; 2021-11-19)
DX: T82.868A Thrombosis due to vascular prosthetic devices, implants and grafts, initial encounter (principal); N17.9 Acute kidney failure, unspecified; E43 Unspecified severe protein-calorie malnutrition; I82.A11 Acute embolism and thrombosis of right axillary vein; E11.22 Type 2 diabetes mellitus with diabetic chronic kidney disease; E87.5 Hyperkalemia; D64.9 Anemia, unspecified; I12.9 Hypertensive chronic kidney disease with stage 1 through stage 4 chronic kidney disease, or unspecified chronic kidney disease; Y84.8 Other medical procedures as the cause of abnormal reaction of the patient, or of later complication, without mention of misadventure at the time of the procedure; Z20.822 Contact with and (suspected) exposure to COVID-19; N18.9 Chronic kidney disease, unspecified; J98.11 Atelectasis; I82.611 Acute embolism and thrombosis of superficial veins of right upper extremity; Z83.3 Family history of diabetes mellitus; Z84.1 Family history of disorders of kidney and ureter; Y92.89 Other specified places as the place of occurrence of the external cause
CPT/HCPCS: 36415; 71045; 80053; 82948; 83735; 83880; 84100; 84484; 85025; 85610; 85730; 87081; 93005; 93971; 97116; 97530; 99285; J0692; J1644; J1815; J3490; J7060; Q0092; Q0162

== ENCOUNTER 2022-06-19 10:47 | Emergency (ER) | payer OTHER ==
[~2022-06-19] VITALS: Ht 175.3 cm; Wt 72.6 kg
[~2022-06-19 10:47] MED LIST changes: -AMOX-1000 PO; +APIX5TAB PO; +CEFE2SOL IV; +FLA500I IV
[2022-06-19 10:51] VITALS: BP 167/79
--- NOTE | 2022-06-19 10:53 | NUR ---
66/M BIBA FROM HOME C/O RIGHT SIDED EAR PAIN ONSET 2 DAYS. PT REPORTS CHRONIC EAR PAIN THAT GOT WORSE 2 DAYS AGO. STATES CHRONIC DIMINISHED HEARING. AAO4, AMBULATORY, VITALS STABLE PMH: HTN, DM, NEUROPATHY, CHRONIC RIGHT EAR PAIN.
[2022-06-19] MEDS ORDERED: TRAM-748 PO (11:22)
== END 2022-06-19 11:30 | disposition home or self-care (01) ==
LOC: MED 10:47
DX: H92.01 Otalgia, right ear (principal); I10 Essential (primary) hypertension; E11.9 Type 2 diabetes mellitus without complications; Z79.4 Long term (current) use of insulin; Z79.899 Other long term (current) drug therapy
CPT/HCPCS: 99283